=== PATIENT | male | born 1945 | race Caucasian/White ===

== ENCOUNTER 2016-08-14 09:53 | Outpatient (CLI) | payer MEDICARE, OTHER | END 2016-08-14 09:54 | disposition home or self-care (01) | DX: N40.1 Benign prostatic hyperplasia with lower urinary tract symptoms (principal); R39.15 Urgency of urination; N39.41 Urge incontinence ==

== ENCOUNTER 2016-10-23 10:57 | Day surgery (SDC) | payer MEDICARE, OTHER ==
[2016-10-23] MEDS ORDERED: LACTATED RINGERS 1,000 ML IV ONE (11:28)
[2016-10-23] MEDS ORDERED: fentaNYL 100 MCG/2 ML VIAL IVP ONE (13:29)
[2016-10-23] MEDS ORDERED: MIDAZOLAM 2 MG/2 ML VIAL IVP ONE (13:29)
== END 2016-10-23 10:58 | disposition home or self-care (01) ==
PROC: 0DBL8ZZ Excision of Transverse Colon, Via Natural or Artificial Opening Endoscopic (ICD-10-PCS; 2016-10-23)
PROC: 0DBN8ZZ Excision of Sigmoid Colon, Via Natural or Artificial Opening Endoscopic (ICD-10-PCS; 2016-10-23)
PROC: 0DBK8ZZ Excision of Ascending Colon, Via Natural or Artificial Opening Endoscopic (ICD-10-PCS; principal; 2016-10-23 12:15)
DX: Z12.11 Encounter for screening for malignant neoplasm of colon (principal); D12.3 Benign neoplasm of transverse colon; D12.2 Benign neoplasm of ascending colon; D12.5 Benign neoplasm of sigmoid colon; K64.8 Other hemorrhoids; K64.4 Residual hemorrhoidal skin tags; K57.30 Diverticulosis of large intestine without perforation or abscess without bleeding; E11.9 Type 2 diabetes mellitus without complications; K21.9 Gastro-esophageal reflux disease without esophagitis; I25.2 Old myocardial infarction; Z95.5 Presence of coronary angioplasty implant and graft
CPT/HCPCS: 45385; J7120

== ENCOUNTER 2016-10-31 12:35 | Inpatient (IN) | payer MEDICARE, OTHER ==
[2016-10-31] MEDS ORDERED: SODIUM CHLORIDE 0.9% 1,000 ML IV ONE (13:11)
[2016-10-31 13:26] LABS: BASOPHILS # (AUTO) 0.1 10^3/uL (0.0-0.1); BASOPHILS % (AUTO) 0.7 %; EOSINOPHILS # (AUTO) 0.1 10^3/uL (0.0-0.7); HCT - HEMATOCRIT 36.4 % (42.0-52.0); HGB - HEMOGLOBIN 12.8 g/dL (14.0-18.0); LYMPHOCYTES # (AUTO) 1.8 10^3/uL (1.5-3.5); LYMPHOCYTES % (AUTO) 24.5 %; MEAN CORPUSCULAR HEMOGLOBIN 30.2 pg (27.0-31.0); MEAN CORPUSCULAR HGB CONC 35.2 g/dL (32.0-36.0); MEAN CORPUSCULAR VOLUME 85.7 fL (80.0-94.0); MEAN PLATELET VOLUME 8.6 fL (7.4-11.4); MONOCYTES # (AUTO) 0.6 10^3/uL (0.0-1.0); MONOCYTES % (AUTO) 7.5 %; NEUTROPHILS % (AUTO) 66.3 %; RED BLOOD COUNT 4.25 10^6/uL (4.70-6.10); RED CELL DISTRIBUTION WIDTH 12.9 % (12.0-15.0); UNCORRECTED WHITE BLOOD COUNT 7.5 x10^3/uL; WHITE BLOOD COUNT 7.5 x10^3/uL (4.8-10.8)
--- NOTE | 2016-10-31 13:28 | ED Physician Documentation ---
PD HPI ABD PAIN - Stated complaint Stated Complaint: BLOOD IN STOOL,NAUSEA - Chief complaint Chief Complaint: Abd Pain - History obtained from History obtained from: Patient, Family - History of Present Illness Timing - onset: Today (71-year-old gentleman with history of coronary disease status post remote bypass, he is 8 days status post colonoscopy with several polypectomies and findings of internal and external hemorrhoids. He was doing well up until today when he started to develop nausea and then felt impending diarrhea but it was actually dark red blood per rectum several episodes. In fact I see one in the toilet that he had here with about 300 mL's of mostly blood in the toilet. He feels a little dizzy and nauseous but denies abdominal pain.) Review of Systems Ten Systems: 10 systems reviewed and negative Constitutional: reports: Fatigue. denies: Fever, Chills GI: reports: Nausea. denies: Abdominal Pain, Vomiting, Constipation PD PAST MEDICAL HISTORY - Past Medical History Past Medical History: Yes Cardiovascular: Hypertension, High cholesterol, [place] Respiratory: None Neuro: Peripheral neuropathy Endocrine/Autoimmune: Type 2 diabetes GI: Diverticulitis : Benign prostate hypertrophy, Other HEENT: Chronic vision loss, Chronic hearing loss Psych: None Musculoskeletal: Osteoarthritis, Chronic back pain Derm: None - Past Surgical History General: Colonoscopy Ortho: Other Cardiovascular: CABG, Coronary stent HEENT: Cataracts - Present Medications Home Medications: Ambulatory Orders Medication Instructions Recorded Confirmed Aspirin Chewable [St Levi 81 mg PO DAILY 10/23/16 10/31/16 Aspirin] Atorvastatin [Lipitor] 20 mg PO DAILY 10/23/16 10/31/16 Gabapentin 300 mg PO DAILY 10/23/16 10/31/16 Lisinopril 20 mg PO DAILY 10/23/16 10/31/16 Niacin [Niacor] 500 mg PO BID 10/23/16 10/31/16 Omeprazole 20 mg PO DAILY 10/23/16 10/31/16 Tamsulosin [Flomax] 0.4 mg PO DAILY 10/23/16 10/31/16 Metformin HCl [Metformin HCl ER] 1,500 mg PO DAILY 10/31/16 10/31/16 - Allergies Allergies/Adverse Reactions: Allergies Allergy/AdvReac Type Severity Reaction Status Date / Time No Known Drug Allergies Allergy Verified 10/23/16 11:33 - Social History Does the pt smoke?: No Smoking Status: Never smoker Does the pt drink ETOH?: No Does the pt have substance abuse?: No - Family History Family history: reports: Non contributory - Immunizations Immunizations are current?: Yes PD ED PE NORMAL - Vitals Vital signs reviewed: Yes (slight tachycardia) - General General: Alert and oriented X 3, No acute distress - HEENT HEENT: PERRL, EOMI - Neck Neck: Supple, no meningeal sign, No bony TTP - Cardiac Cardiac: RRR, No murmur - Respiratory Respiratory: No respiratory distress, Clear bilaterally - Abdomen Abdomen: Soft, Non tender - Rectal Rectal: Deferred (deferred as I can see the blood in the toilet) - Back Back: No CVA TTP, No spinal TTP - Derm Derm: Normal color, Warm and dry - Extremities Extremities: No edema, No calf tenderness / cord - Neuro Neuro: Alert and oriented X 3, Normal speech - Psych Psych: Normal mood, Normal affect Results - Vitals Vitals: Vital Signs - 24 hr 10/31/16 10/31/16 10/31/16 12:43 13:31 13:45 Temperature 36.8 C Heart Rate 103 H 88 Heart Rate [ 102 H Sitting] Heart Rate [ 109 H Standing] Heart Rate [ 90 Supine] Respiratory 20 16 Rate Blood Pressure 152/82 H 103/66 Blood Pressure 117/74 [Sitting] Blood Pressure 106/67 [Standing] Blood Pressure 131/74 H [Supine] O2 Saturation 96 10/31/16 10/31/16 10/31/16 14:00 14:30 15:45 Temperature Heart Rate 88 78 78 Heart Rate [ Sitting] Heart Rate [ Standing] Heart Rate [ Supine] Respiratory 16 16 Rate Blood Pressure 112/64 122/68 105/51 L Blood Pressure [Sitting] Blood Pressure [Standing] Blood Pressure [Supine] O2 Saturation 10/31/16 10/31/16 16:31 17:30 Temperature Heart Rate 70 88 Heart Rate [ Sitting] Heart Rate [ Standing] Heart Rate [ Supine] Respiratory 18 Rate Blood Pressure 111/64 116/61 Blood Pressure [Sitting] Blood Pressure [Standing] Blood Pressure [Supine] O2 Saturation Oxygen O2 Source Room air - Labs Labs: Laboratory Tests 10/31/16 10/31/16 10/31/16 13:10 13:10 13:10 WBC 7.5 RBC 4.25 L Hgb 12.8 L Hct 36.4 L MCV 85.7 MCH 30.2 MCHC 35.2 RDW 12.9 Plt Count 203 MPV 8.6 Neut # 5.0 Lymph # 1.8 Long # 0.6 Eos # 0.1 Baso # 0.1 Absolute Nucleated RBC 0.00 Nucleated RBCs 0.0 PT 11.6 INR 1.0 Sodium 136 Potassium 3.9 Chloride 102 Carbon Dioxide 25 Anion Gap 9.0 BUN 22 H Creatinine 0.9 Estimated GFR (MDRD) 83 L Glucose 172 H Calcium 9.2 Blood Type Antibody Screen 10/31/16 13:10 WBC RBC Hgb Hct MCV MCH MCHC RDW Plt Count MPV Neut # Lymph # Long # Eos # Baso # Absolute Nucleated RBC Nucleated RBCs PT INR Sodium Potassium Chloride Carbon Dioxide Anion Gap BUN Creatinine Estimated GFR (MDRD) Glucose Calcium Blood Type O POSITIVE Antibody Screen NEGATIVE PD MEDICAL DECISION MAKING - ED course ED course: 71-year-old gentleman with dark red blood per rectum, a significant amount here in the emergency Department associated with orthostasis, 8 days after colonoscopy with polypectomy. Given the large amount of blood and orthostasis I think he should be observed for serial H&H's and I spoke with Dr. Christy for this after he got out of the operating room at approximately 430 p.m. Departure - Departure Disposition: ED Place in Observation Clinical Impression: Lower GI hemorrhage Condition: Stable Discharge Date/Time: 10/31/16 18:20
[2016-10-31 13:32] LABS: PT - PROTHROMBIN TIME 11.6 secs (9.9-12.6)
[2016-10-31 13:35] LABS: CALCIUM 9.2 mg/dL (8.5-10.3); CREATININE 0.9 mg/dL (0.6-1.2); POTASSIUM 3.9 mmol/L (3.5-5.0)
--- NOTE | 2016-10-31 17:37 | HISTORY & PHYSICAL EXAMINATION ---
Chief Complaint - Chief Complaint Chief Complaint: Bleeding per rectum GI Bleed Admit Template - Instructions Dutton/Slash: -Left hand click circles element as positive or present. -Right hand click slashes element as negative or not present. - Admitted From Admitted from: OB - History Obtained From Records Reviewed: RN notes reviewed, Old records reviewed History obtained from: Patient Exam limitations: No limitations - History of Present Illness Severity at the worst: reports: Moderate Bleeding quality: reports: Tommy blood stool Context-bleeding started w/: reports: Bowel movement Timing: reports: Abrupt onset Duration: reports: Days: (1) Improved with: reports: Nothing Worsened by: reports: Nothing Associated symptoms: reports: Feeling faint / dizzy HPI Comment/Other: 71 yo male with recent hx of colonoscopy 10/23/16 with polyp biopsies,and note to have internal hemorrhoids, and diverticulosis presents to ED with 1 day HX of Bright red blood per rectum multiple episodes today. As per the ED attending patient had orthostatic hypotension when examined. Patient denies any SOB, no noausea, vomiting, no dizziness, or light headedness currently PMH/PSH - Past Medical History Cardiovascular: positive: Hypertension, High cholesterol, [place] Respiratory: positive: None Neuro: positive: Peripheral neuropathy Endocrine/Autoimmune: positive: Type 2 diabetes GI: positive: Diverticulitis : positive: Benign prostate hypertrophy, Other HEENT: positive: Chronic vision loss, Chronic hearing loss Psych: positive: None Musculoskeletal: positive: Osteoarthritis, Chronic back pain Derm: positive: None MRSA Hx?: No - Past Surgical History General: positive: Colonoscopy Ortho: positive: Other Cardiovascular: positive: CABG, Coronary stent HEENT: positive: Cataracts Social & Family Hx - Social History Does the pt smoke?: No Smoking Status: Never smoker Does the pt drink ETOH?: No Does the pt have substance abuse?: No Meds/Allgy - Home Medications Home Medications: Ambulatory Orders Medication Instructions Recorded Confirmed Aspirin Chewable [St Levi 81 mg PO DAILY 10/23/16 10/23/16 Aspirin] Atorvastatin [Lipitor] 20 mg PO DAILY 10/23/16 10/23/16 Gabapentin 300 mg PO DAILY 10/23/16 10/23/16 Lisinopril 20 mg PO DAILY 10/23/16 10/23/16 Niacin [Niacor] 500 mg PO BID 10/23/16 10/23/16 Omeprazole 20 mg PO DAILY 10/23/16 10/23/16 Tamsulosin [Flomax] 0.4 mg PO DAILY 10/23/16 10/23/16 - Allergies Allergies/Adverse Reactions: Allergies Allergy/AdvReac Type Severity Reaction Status Date / Time No Known Drug Allergies Allergy Verified 10/23/16 11:33 Review of Systems - Eyes Eyes: denies: Pain, Irritation - Ears, Nose & Throat Ears, Nose & Throat: denies: Ear pain, Hearing loss - Cardiovascular Cariovascular: denies: Palpitations, Chest pain - Respiratory Respiratory: denies: Wheezing, Hemoptysis, SOB at rest, SOB with exertion - Gastrointestinal Gastrointestinal: reports: Rectal bleeding, Bloody stools. denies: Abdominal pain, Constipation, Diarrhea, Tommy blood emesis - Genitourinary Genitourinary: denies: Dysuria, Urgency - Musculoskeletal Musculoskeletal: denies: Muscle pain, Back pain - Integumentary Integumentary: denies: Rash - Neurological Neurological: denies: General weakness, Headache, Dizziness - Psychiatric Psychiatric: denies: Depression, Anxiety - Endocrine Endocrine: denies: Polyuria, Polydypsia - Hematologic/Lymphatic Hematologic/Lymphatic: denies: Anemia - All Other Systems All Other Systems: reports: Reviewed and negative Exam - Vital Signs Vital Signs: Vital Signs x48h Temp Pulse Pulse Pulse Pulse Resp BP 10/31/16 16:31 70 111/64 10/31/16 15:45 78 16 105/51 L 10/31/16 14:30 78 16 122/68 10/31/16 14:00 88 112/64 10/31/16 13:45 88 16 103/66 10/31/16 13:31 102 H 109 H 90 10/31/16 12:43 36.8 C 103 H 20 152/82 H BP BP BP Pulse Ox 10/31/16 16:31 10/31/16 15:45 10/31/16 14:30 10/31/16 14:00 10/31/16 13:45 10/31/16 13:31 117/74 106/67 131/74 H 10/31/16 12:43 96 - Physical Exam General Appearance: positive: No acute distress Eyes Bilateral: positive: Normal inspection ENT: positive: No signs of dehydration Neck: positive: Nml inspection Respiratory: positive: Chest non-tender, Breath sounds nml Cardiovascular: positive: Regular rate & rhythm Peripheral Pulses: positive: 2+ Abdomen: positive: Non-tender, Nml bowel sounds, No distention Rectal: positive: Non-tender, Stool - heme NEG, Black stool Back: positive: Nml inspection Skin: positive: No rash, Dry Extremities: positive: Full ROM Results - Lab Results Fish Bones: 10/31/16 13:10 10/31/16 13:10 Other Lab Results: Lab Results x24hrs 10/31/16 10/31/16 10/31/16 Range/Units 13:10 13:10 13:10 WBC (4.8-10.8) x10^3/uL RBC (4.70-6.10) 10^6/uL Hgb (14.0-18.0) g/dL Hct (42.0-52.0) % MCV (80.0-94.0) fL MCH (27.0-31.0) pg MCHC (32.0-36.0) g/dL RDW (12.0-15.0) % Plt Count (130-450) 10^3/uL MPV (7.4-11.4) fL Neut # (1.5-6.6) 10^3/uL Lymph # (1.5-3.5) 10^3/uL Geary # (0.0-1.0) 10^3/uL Eos # (0.0-0.7) 10^3/uL Baso # (0.0-0.1) 10^3/uL Absolute Nucleated RBC x10^3/uL Nucleated RBCs /100WBC PT 11.6 (9.9-12.6) secs INR 1.0 (0.8-1.2) Sodium 136 (135-145) mmol/L Potassium 3.9 (3.5-5.0) mmol/L Chloride 102 (101-111) mmol/L Carbon Dioxide 25 (21-32) mmol/L Anion Gap 9.0 (6-13) BUN 22 H (6-20) mg/dL Creatinine 0.9 (0.6-1.2) mg/dL Estimated GFR (MDRD) 83 L (>89) Glucose 172 H (70-100) mg/dL Calcium 9.2 (8.5-10.3) mg/dL Blood Type O POSITIVE Antibody Screen NEGATIVE 10/31/16 Range/Units 13:10 WBC 7.5 (4.8-10.8) x10^3/uL RBC 4.25 L (4.70-6.10) 10^6/uL Hgb 12.8 L (14.0-18.0) g/dL Hct 36.4 L (42.0-52.0) % MCV 85.7 (80.0-94.0) fL MCH 30.2 (27.0-31.0) pg MCHC 35.2 (32.0-36.0) g/dL RDW 12.9 (12.0-15.0) % Plt Count 203 (130-450) 10^3/uL MPV 8.6 (7.4-11.4) fL Neut # 5.0 (1.5-6.6) 10^3/uL Lymph # 1.8 (1.5-3.5) 10^3/uL Geary # 0.6 (0.0-1.0) 10^3/uL Eos # 0.1 (0.0-0.7) 10^3/uL Baso # 0.1 (0.0-0.1) 10^3/uL Absolute Nucleated RBC 0.00 x10^3/uL Nucleated RBCs 0.0 /100WBC PT (9.9-12.6) secs INR (0.8-1.2) Sodium (135-145) mmol/L Potassium (3.5-5.0) mmol/L Chloride (101-111) mmol/L Carbon Dioxide (21-32) mmol/L Anion Gap (6-13) BUN (6-20) mg/dL Creatinine (0.6-1.2) mg/dL Estimated GFR (MDRD) (>89) Glucose (70-100) mg/dL Calcium (8.5-10.3) mg/dL Blood Type Antibody Screen ARRA - Anticipated LOS Anticipated Stay Length: Less than 2 midnights - DVT/VTE - Prophylaxis VTE/DVT Device ordered at admit?: Yes VTE/DVT Prophylaxis med ordered at admit?: No Not Ordered - Medical Reason: Contraindicated (GI bleed) Impression/Plan - Problem List Problem List: 71 yo male with hx of HTN, [place] with stents DM II BPH, lower GI bleed resolved Admit to surgery for observation NPO except home meds except ASA serial CBC's
[2016-10-31] MEDS ORDERED: SODIUM CHLORIDE FLUSH 0.9% 10 ML SYRINGE IVP PRN (17:44)
[2016-10-31] MEDS ORDERED: ONDANSETRON ODT 4 MG TABLET TL PRN (17:44)
[2016-10-31] MEDS ORDERED: PANTOPRAZOLE 40 MG TABLET PO STA (17:50)
[2016-10-31 18:14] LABS: BASOPHILS % (AUTO) 0.3 %; EOSINOPHILS # (AUTO) 0.1 10^3/uL (0.0-0.7); EOSINOPHILS % (AUTO) 1.1 %; HGB - HEMOGLOBIN 11.7 g/dL (14.0-18.0); LYMPHOCYTES # (AUTO) 1.9 10^3/uL (1.5-3.5); LYMPHOCYTES % (AUTO) 27.5 %; MEAN CORPUSCULAR HEMOGLOBIN 29.1 pg (27.0-31.0); MEAN CORPUSCULAR HGB CONC 33.4 g/dL (32.0-36.0); MEAN CORPUSCULAR VOLUME 87.2 fL (80.0-94.0); MEAN PLATELET VOLUME 8.3 fL (7.4-11.4); MONOCYTES # (AUTO) 0.5 10^3/uL (0.0-1.0); MONOCYTES % (AUTO) 7.4 %; NEUTROPHILS # (AUTO) 4.5 10^3/uL (1.5-6.6); NEUTROPHILS % (AUTO) 63.7 %; RED BLOOD COUNT 4.02 10^6/uL (4.70-6.10); RED CELL DISTRIBUTION WIDTH 12.9 % (12.0-15.0)
[2016-10-31] MEDS ORDERED: PANTOPRAZOLE 40 MG TABLET PO SCH (21:15)
[2016-10-31] MEDS: SODIUM CHLORIDE FLUSH 0.9% 10 ML SYRINGE IVP SCH (22:31)
[2016-10-31] MEDS: LACTATED RINGERS 1,000 ML IV SCH (22:31)
[2016-10-31] MEDS: ATORVASTATIN 10 MG TABLET PO SCH (22:32)
[2016-10-31] MEDS: GABAPENTIN 100 MG CAPSULE PO SCH (22:32)
--- NOTE | 2016-10-31 22:47 | PROVIDER PROGRESS NOTE ---
Subjective - Prog Note Date Prog Note Date: 10/31/16 Prog Note Time: 22:45 - Subjective Pt reports feeling: No change Subjective: Pt seen at bedside. RN reports that pt had bright red blood per rectum BM around 500 mL, and felt dizziy and stated he felt likehe was going to faint. Vitals measured 115/66, HR 75. Patient states otherwise he feels comfortable. He denies cp or SOB Current Medications - Current Medications Current Medications: Active Medications Generic Name Dose Route Start Last Admin Trade Name Freq PRN Reason Stop Dose Admin Atorvastatin Calcium 20 mg 10/31/16 21:00 10/31/16 22:32 Lipitor PO Not Given QPM SHY Gabapentin 100 mg 10/31/16 22:00 10/31/16 22:32 Neurontin PO Not Given TID SHY Lactated Ringer's 1,000 mls @ 125 mls/hr 10/31/16 21:00 10/31/16 22:31 Lr IV 11/02/16 20:59 125 mls/hr .Q8H SHY Administration Insulin Human Regular 1 - 5 unit 11/01/16 00:00 Novolin R SUBQ Q6HR SHY Protocol Ondansetron HCl 4 mg 10/31/16 17:44 Zofran Odt TL Q6HR PRN Nausea / Vomiting Pantoprazole Sodium 40 mg 10/31/16 21:15 10/31/16 22:31 Protonix PO 10/31/16 23:00 40 mg ONCE SHY Administration Sodium Chloride 10 ml 10/31/16 17:44 Normal Saline Flush 0.9% IVP PRN PRN NEEDED PER PROVIDER ORDERS Sodium Chloride 10 ml 10/31/16 22:00 10/31/16 22:31 Normal Saline Flush 0.9% IVP 10 ml Q8HR SHY Administration Tamsulosin HCl 0.4 mg 11/01/16 09:00 Flomax PO DAILY SHY Aspirin Chewable [St Levi Aspirin] 81 mg PO DAILY 10/23/16 Atorvastatin [Lipitor] 20 mg PO DAILY 10/23/16 Gabapentin 300 mg PO DAILY 10/23/16 Lisinopril 20 mg PO DAILY 10/23/16 Niacin [Niacor] 500 mg PO BID 10/23/16 Omeprazole 20 mg PO DAILY 10/23/16 Tamsulosin [Flomax] 0.4 mg PO DAILY 10/23/16 Metformin HCl [Metformin HCl ER] 1,500 mg PO DAILY 10/31/16 Objective - Vital Signs/Intake & Output Reviewed Vital Signs: Yes Vital Signs: Vital Signs x48h Temp Pulse Pulse Resp BP BP Pulse Ox 10/31/16 22:23 75 115/66 98 10/31/16 21:02 36.5 C 10/31/16 21:01 76 16 130/71 97 10/31/16 18:34 36.5 C 87 18 124/77 97 10/31/16 18:00 88 18 130/69 Intake & Output: Intake & Output 10/28/16 10/29/16 10/30/16 10/31/16 23:59 23:59 23:59 23:59 Output Total 450 Balance -450 - Objective General Appearance: positive: No acute distress Eyes Bilateral: positive: Normal inspection Respiratory: positive: Breath sounds nml. negative: Wheezes, Rales, Rhonchi Cardiovascular: positive: Regular rate & rhythm Peripheral Pulses: 2+ Radial (R), 2+ Radial (L) Abdomen: positive: Non-tender, No organomegaly, Nml bowel sounds Skin: positive: Warm, Dry Extremities: positive: Non-tender Neurologic/Psychiatric: positive: Oriented x3, CN's nml (2-12) - Lab Results Fish Bones: 10/31/16 18:08 10/31/16 13:10 Other Labs: Lab Results x24hrs 10/31/16 Range/Units 18:08 WBC 7.0 (4.8-10.8) x10^3/uL RBC 4.02 L (4.70-6.10) 10^6/uL Hgb 11.7 L (14.0-18.0) g/dL Hct 35.0 L (42.0-52.0) % MCV 87.2 (80.0-94.0) fL MCH 29.1 (27.0-31.0) pg MCHC 33.4 (32.0-36.0) g/dL RDW 12.9 (12.0-15.0) % Plt Count 200 (130-450) 10^3/uL MPV 8.3 (7.4-11.4) fL Neut # 4.5 (1.5-6.6) 10^3/uL Lymph # 1.9 (1.5-3.5) 10^3/uL Darke # 0.5 (0.0-1.0) 10^3/uL Eos # 0.1 (0.0-0.7) 10^3/uL Baso # 0.0 (0.0-0.1) 10^3/uL Absolute Nucleated RBC 0.00 x10^3/uL Nucleated RBCs 0.0 /100WBC Assessment/Plan - Problem List (1) Lower GI hemorrhage Impression: 71 yo male with hx of DM, [place] s/p CABG, HTN, diverticulosis, internal hemorrhoids , s/p colonoscopy 10/23/16 here with lower GI bleed NPO IVF Serial H&H Type and Cross 2 units PRBCS Medical team on case appreciated. RISS, SCD's will transfuse and place in ICU if continues to have lower GI bleed May need therapeutic colonoscopy
[2016-10-31] MEDS: INSULIN REGULAR HUMAN 100 UNIT/1 ML 10 ML MDV SUBQ SCH (23:34)
[2016-11-01 00:56] LABS: BASOPHILS % (AUTO) 0.5 %; EOSINOPHILS % (AUTO) 0.3 %; HCT - HEMATOCRIT 31.1 % (42.0-52.0); HGB - HEMOGLOBIN 10.5 g/dL (14.0-18.0); LYMPHOCYTES # (AUTO) 1.4 10^3/uL (1.5-3.5); LYMPHOCYTES % (AUTO) 15.7 %; MEAN CORPUSCULAR HEMOGLOBIN 29.4 pg (27.0-31.0); MEAN CORPUSCULAR HGB CONC 33.6 g/dL (32.0-36.0); MEAN CORPUSCULAR VOLUME 87.4 fL (80.0-94.0); MEAN PLATELET VOLUME 9.2 fL (7.4-11.4); MONOCYTES # (AUTO) 0.4 10^3/uL (0.0-1.0); MONOCYTES % (AUTO) 4.5 %; RED BLOOD COUNT 3.56 10^6/uL (4.70-6.10); RED CELL DISTRIBUTION WIDTH 12.8 % (12.0-15.0); UNCORRECTED WHITE BLOOD COUNT 8.8 x10^3/uL; WHITE BLOOD COUNT 8.8 x10^3/uL (4.8-10.8)
--- NOTE | 2016-11-01 03:03 | CONSULTATION NOTE ---
DATE OF CONSULTATION: 10/31/2016 00:00:00 REQUESTING PHYSICIAN: Dr. Fuad Christy. REASON FOR CONSULTATION: Management of medical issues, which include history of coronary artery disea se, hyperlipidemia, type 2 diabetes. PRIMARY CARE PROVIDER: Dr. Soheila Talbert. HISTORY OF PRESENT ILLNESS: This is a 71-year-old male who had a colonoscopy done about a week ago an d had some polyp biopsies. Was noted to have internal hemorrhoids and diverticulosis. He was in his [facility] until this morning and developed some bright red blood per rectum, had multiple episodes, felt slightly lightheaded with this and presented to the emergency room. He denied any shor tness of breath, chest pain, nausea or vomiting, but did have a little bit of lightheadedness with st anding. His initial hemoglobin was 12.8 with hematocrit of 36.4. This was obtained at 1:10 p.m. His r epeat lab at 6:08 p.m. was 11.7 and 35.0. Just prior to my consultation, he did have maroon-colored s tool and he felt a little bit lightheaded while sitting on the toilet and had a little bit of nausea with this. Prior to this, he has had no heart symptoms such as chest pain, shortness of breath, has n o history of cerebrovascular disease. He does take aspirin 1 tab daily 81 mg. He is on Lipitor 20 mg daily and lisinopril 20 mg daily. PAST MEDICAL HISTORY 1. Hyperlipidemia. 2. History of [place] with initially stent placed. The patient had recurrent symptoms soon after that and had a CABG x3 in 2001. This was done in [facility]. 3. Type 2 diabetes with peripheral neuropathy. 4. History of BPH. 5. History of diverticulitis. 6. Hypertension. MEDICATIONS UPON ADMISSION 1. ASA 81 mg p.o. daily. 2. Lipitor 20 mg p.o. daily. 3. Gabapentin 300 mg p.o. daily. 4. Lisinopril 20 mg p.o. daily. 5. Niacin 500 mg p.o. b.i.d. 6. Omeprazole 20 mg p.o. daily. 7. Flomax 0.4 mg p.o. daily. ALLERGIES: NO KNOWN DRUG ALLERGIES. SOCIAL HISTORY: Smoking and alcohol none. FAMILY MEDICAL HISTORY: Asked and noncontributory. REVIEW OF SYSTEMS: Denies fevers, chills. Denies cough. All other review of systems are reviewed and are negative except for as in HPI. Of note, the patient denies any abdominal pain currently. PHYSICAL EXAMINATION VITAL SIGNS: Reveals temperature is afebrile, heart rate is 75, blood pressure 115/66, room air satur ation 98%. CONSTITUTIONAL: Elderly male in no acute distress. HEAD: Normocephalic, atraumatic. EYES: PERRLA-DC, EOMI. MOUTH: No lesions. NECK: No adenopathy. CHEST: Clear to auscultation. COR: Regular rate and rhythm, S1, S2 without murmur. ABDOMEN: Soft, nontender. Bowel sounds present. EXTREMITIES: No pedal edema. SKIN: No rashes. PSYCHIATRIC: Mood and affect are appropriate. NEUROLOGIC: Alert and oriented x3. Motor strength is intact bilaterally. LABORATORY DATA: As above. Also to include white count of 7.5, MCV 85.7, platelets 203, 5.9 polys. IN R is 1.0. Sodium 136, potassium 3.9, chloride 102, bicarbonate 25, BUN 22, creatinine 0.9, calculated GFR 83, glucose 172, calcium 9.2. I did order a troponin q.6h. x3, which is pending. Ordered a stat repeat hematocrit at this time, which is pending and EKG is pending. The patient was also placed on t elemetry. ASSESSMENT AND PLAN 1. Lower gastrointestinal bleed, acute, present on admission. Serial hematocrits per General Surgery. I did order a stat hematocrit now given that the patient just recently had a maroon stool, appeared to be a significant amount, was slightly lightheaded with it. The patient is n.p.o. except medication s per General Surgery. 2. History of coronary artery disease. We will check serial cardiac troponins to make sure anemia is not causing any issues at this point. Check EKG, place on telemetry. 3. Type 2 diabetes, chronic, present on admission. Is on subcutaneous insulin protocol. Only uses met formin at home, which we will go ahead and hold during this hospital admission. 4. Hypertension, chronic, present on admission. We will go ahead and hold his lisinopril given his cu rrent GI bleeding. TIME SPENT: 60 minutes. JOB #: [id number] EXT JOB #:[id number]
[2016-11-01 04:51] LABS: BASOPHILS % (AUTO) 0.5 %; EOSINOPHILS % (AUTO) 0.6 %; HCT - HEMATOCRIT 30.4 % (42.0-52.0); HGB - HEMOGLOBIN 10.1 g/dL (14.0-18.0); LYMPHOCYTES # (AUTO) 1.7 10^3/uL (1.5-3.5); LYMPHOCYTES % (AUTO) 28.8 %; MEAN CORPUSCULAR HGB CONC 33.2 g/dL (32.0-36.0); MEAN CORPUSCULAR VOLUME 87.4 fL (80.0-94.0); MEAN PLATELET VOLUME 8.5 fL (7.4-11.4); MONOCYTES # (AUTO) 0.4 10^3/uL (0.0-1.0); MONOCYTES % (AUTO) 6.8 %; NEUTROPHILS # (AUTO) 3.8 10^3/uL (1.5-6.6); NEUTROPHILS % (AUTO) 63.3 %; RED BLOOD COUNT 3.48 10^6/uL (4.70-6.10); RED CELL DISTRIBUTION WIDTH 12.9 % (12.0-15.0); UNCORRECTED WHITE BLOOD COUNT 6.1 x10^3/uL; WHITE BLOOD COUNT 6.1 x10^3/uL (4.8-10.8)
[2016-11-01 05:03] LABS: ALBUMIN/GLOBULIN RATIO 1.3 (1.0-2.2); BILIRUBIN,TOTAL 0.9 mg/dL (0.2-1.0); CALCIUM 8.7 mg/dL (8.5-10.3); CREATININE 0.9 mg/dL (0.6-1.2); POTASSIUM 3.8 mmol/L (3.5-5.0); TOTAL PROTEIN 5.7 g/dL (6.7-8.2)
[2016-11-01] MEDS: GABAPENTIN 100 MG CAPSULE PO SCH ×3 (06:35→20:56)
[2016-11-01] MEDS: SODIUM CHLORIDE FLUSH 0.9% 10 ML SYRINGE IVP SCH ×3 (06:36→20:56)
[2016-11-01] MEDS: INSULIN REGULAR HUMAN 100 UNIT/1 ML 10 ML MDV SUBQ SCH (06:47)
--- NOTE | 2016-11-01 08:03 | PROVIDER PROGRESS NOTE ---
Subjective - Prog Note Date Prog Note Date: 11/01/16 Prog Note Time: 08:01 - Subjective Pt reports feeling: Improved (Patient seen at bedside. He denies having a Bm since his last episode yesterday night. He states he feels ok and is hungry. Denies, SOB, CP, dizziness, or abdominal pain) Current Medications - Current Medications Current Medications: Active Medications Generic Name Dose Route Start Last Admin Trade Name Freq PRN Reason Stop Dose Admin Atorvastatin Calcium 20 mg 10/31/16 21:00 10/31/16 22:32 Lipitor PO Not Given QPM SHY Gabapentin 100 mg 10/31/16 22:00 11/01/16 06:35 Neurontin PO 100 mg TID SHY Administration Lactated Ringer's 1,000 mls @ 125 mls/hr 10/31/16 21:00 10/31/16 22:31 Lr IV 11/02/16 20:59 125 mls/hr .Q8H SHY Administration Insulin Human Regular 1 - 5 unit 11/01/16 00:00 11/01/16 06:47 Novolin R SUBQ 1 unit Q6HR SHY Administration Protocol Ondansetron HCl 4 mg 10/31/16 17:44 Zofran Odt TL Q6HR PRN Nausea / Vomiting Sodium Chloride 10 ml 10/31/16 17:44 Normal Saline Flush 0.9% IVP PRN PRN NEEDED PER PROVIDER ORDERS Sodium Chloride 10 ml 10/31/16 22:00 11/01/16 06:36 Normal Saline Flush 0.9% IVP 10 ml Q8HR SHY Administration Tamsulosin HCl 0.4 mg 11/01/16 09:00 Flomax PO DAILY SHY Aspirin Chewable [St Levi Aspirin] 81 mg PO DAILY 10/23/16 Atorvastatin [Lipitor] 20 mg PO DAILY 10/23/16 Gabapentin 300 mg PO DAILY 10/23/16 Lisinopril 20 mg PO DAILY 10/23/16 Niacin [Niacor] 500 mg PO BID 10/23/16 Omeprazole 20 mg PO DAILY 10/23/16 Tamsulosin [Flomax] 0.4 mg PO DAILY 10/23/16 Metformin HCl [Metformin HCl ER] 1,500 mg PO DAILY 10/31/16 Objective - Vital Signs/Intake & Output Vital Signs: Vital Signs x48h Temp Pulse Resp BP Pulse Ox 11/01/16 07:52 36.6 C 84 18 99/52 L 97 11/01/16 04:19 36.8 C 76 16 103/66 98 11/01/16 00:54 36.6 C 81 18 103/64 97 Intake & Output: Intake & Output 10/29/16 10/30/16 10/31/16 11/01/16 23:59 23:59 23:59 23:59 Intake Total 175 Output Total 450 400 Balance -450 -225 - Objective General Appearance: positive: No acute distress Eyes Bilateral: positive: Normal inspection ENT: positive: No signs of dehydration Neck: positive: Nml inspection Respiratory: positive: Breath sounds nml. negative: Wheezes, Rales, Rhonchi Cardiovascular: positive: Regular rate & rhythm Abdomen: positive: Non-tender, Nml bowel sounds Back: positive: Nml inspection Skin: positive: Warm, Dry Extremities: positive: Non-tender, Full ROM Neurologic/Psychiatric: positive: Oriented x3, CN's nml (2-12) - Lab Results Fish Bones: 11/01/16 04:35 11/01/16 04:35 Other Labs: Lab Results x24hrs 11/01/16 11/01/16 11/01/16 Range/Units 04:35 04:35 04:35 WBC 6.1 (4.8-10.8) x10^3/uL RBC 3.48 L (4.70-6.10) 10^6/uL Hgb 10.1 L (14.0-18.0) g/dL Hct 30.4 L (42.0-52.0) % MCV 87.4 (80.0-94.0) fL MCH 29.0 (27.0-31.0) pg MCHC 33.2 (32.0-36.0) g/dL RDW 12.9 (12.0-15.0) % Plt Count 197 (130-450) 10^3/uL MPV 8.5 (7.4-11.4) fL Neut # 3.8 (1.5-6.6) 10^3/uL Lymph # 1.7 (1.5-3.5) 10^3/uL [place] # 0.4 (0.0-1.0) 10^3/uL Eos # 0.0 (0.0-0.7) 10^3/uL Baso # 0.0 (0.0-0.1) 10^3/uL Absolute Nucleated RBC 0.00 x10^3/uL Nucleated RBCs 0.0 /100WBC Sodium 136 (135-145) mmol/L Potassium 3.8 (3.5-5.0) mmol/L Chloride 103 (101-111) mmol/L Carbon Dioxide 26 (21-32) mmol/L Anion Gap 7.0 (6-13) BUN 19 (6-20) mg/dL Creatinine 0.9 (0.6-1.2) mg/dL Estimated GFR (MDRD) 83 L (>89) Glucose 154 H (70-100) mg/dL Calcium 8.7 (8.5-10.3) mg/dL Total Bilirubin 0.9 (0.2-1.0) mg/dL AST 13 (10-42) IU/L ALT 18 (10-60) IU/L Alkaline Phosphatase 64 (42-121) IU/L Troponin I < 0.04 (<0.49) ng/mL Total Protein 5.7 L (6.7-8.2) g/dL Albumin 3.2 (3.2-5.5) g/dL Globulin 2.5 (2.1-4.2) g/dL Albumin/Globulin Ratio 1.3 (1.0-2.2) 10/31/16 10/31/16 10/31/16 Range/Units 23:57 22:49 22:49 WBC 8.8 (4.8-10.8) x10^3/uL RBC 3.56 L (4.70-6.10) 10^6/uL Hgb 10.5 L (14.0-18.0) g/dL Hct 31.1 L 30.3 L (42.0-52.0) % MCV 87.4 (80.0-94.0) fL MCH 29.4 (27.0-31.0) pg MCHC 33.6 (32.0-36.0) g/dL RDW 12.8 (12.0-15.0) % Plt Count 197 (130-450) 10^3/uL MPV 9.2 (7.4-11.4) fL Neut # 7.0 H (1.5-6.6) 10^3/uL Lymph # 1.4 L (1.5-3.5) 10^3/uL [place] # 0.4 (0.0-1.0) 10^3/uL Eos # 0.0 (0.0-0.7) 10^3/uL Baso # 0.0 (0.0-0.1) 10^3/uL Absolute Nucleated RBC 0.00 x10^3/uL Nucleated RBCs 0.0 /100WBC Sodium (135-145) mmol/L Potassium (3.5-5.0) mmol/L Chloride (101-111) mmol/L Carbon Dioxide (21-32) mmol/L Anion Gap (6-13) BUN (6-20) mg/dL Creatinine (0.6-1.2) mg/dL Estimated GFR (MDRD) (>89) Glucose (70-100) mg/dL Calcium (8.5-10.3) mg/dL Total Bilirubin (0.2-1.0) mg/dL AST (10-42) IU/L ALT (10-60) IU/L Alkaline Phosphatase (42-121) IU/L Troponin I < 0.04 (<0.49) ng/mL Total Protein (6.7-8.2) g/dL Albumin (3.2-5.5) g/dL Globulin (2.1-4.2) g/dL Albumin/Globulin Ratio (1.0-2.2) 10/31/16 Range/Units 18:08 WBC 7.0 (4.8-10.8) x10^3/uL RBC 4.02 L (4.70-6.10) 10^6/uL Hgb 11.7 L (14.0-18.0) g/dL Hct 35.0 L (42.0-52.0) % MCV 87.2 (80.0-94.0) fL MCH 29.1 (27.0-31.0) pg MCHC 33.4 (32.0-36.0) g/dL RDW 12.9 (12.0-15.0) % Plt Count 200 (130-450) 10^3/uL MPV 8.3 (7.4-11.4) fL Neut # 4.5 (1.5-6.6) 10^3/uL Lymph # 1.9 (1.5-3.5) 10^3/uL [place] # 0.5 (0.0-1.0) 10^3/uL Eos # 0.1 (0.0-0.7) 10^3/uL Baso # 0.0 (0.0-0.1) 10^3/uL Absolute Nucleated RBC 0.00 x10^3/uL Nucleated RBCs 0.0 /100WBC Sodium (135-145) mmol/L Potassium (3.5-5.0) mmol/L Chloride (101-111) mmol/L Carbon Dioxide (21-32) mmol/L Anion Gap (6-13) BUN (6-20) mg/dL Creatinine (0.6-1.2) mg/dL Estimated GFR (MDRD) (>89) Glucose (70-100) mg/dL Calcium (8.5-10.3) mg/dL Total Bilirubin (0.2-1.0) mg/dL AST (10-42) IU/L ALT (10-60) IU/L Alkaline Phosphatase (42-121) IU/L Troponin I (<0.49) ng/mL Total Protein (6.7-8.2) g/dL Albumin (3.2-5.5) g/dL Globulin (2.1-4.2) g/dL Albumin/Globulin Ratio (1.0-2.2) Assessment/Plan - Problem List (1) Lower GI hemorrhage Impression: 71 yo male with Lower GI Bleed resolving CBC's beginning to stabilize. Medical team on case appreciated Will continue serial CBC's May need transfusion if has recurrent episode. Will continue previous medications
[2016-11-01] MEDS ORDERED: LISINOPRIL 20 MG TABLET PO SCH (09:00)
[2016-11-01 09:05] LABS: MAGNESIUM 1.5 mg/dL (1.7-2.8); PHOSPHORUS 2.8 mg/dL (2.5-4.6)
[2016-11-01] MEDS: TAMSULOSIN 0.4 MG CAPSULE PO SCH (09:14)
[2016-11-01 09:20] LABS: HEMOGLOBIN A1C 0.51 g/dL
[2016-11-01 10:47] LABS: BASOPHILS % (AUTO) 0.5 %; EOSINOPHILS % (AUTO) 0.8 %; HCT - HEMATOCRIT 30.2 % (42.0-52.0); HGB - HEMOGLOBIN 10.5 g/dL (14.0-18.0); LYMPHOCYTES # (AUTO) 1.6 10^3/uL (1.5-3.5); LYMPHOCYTES % (AUTO) 29.4 %; MEAN CORPUSCULAR HEMOGLOBIN 29.9 pg (27.0-31.0); MEAN CORPUSCULAR HGB CONC 34.6 g/dL (32.0-36.0); MEAN CORPUSCULAR VOLUME 86.3 fL (80.0-94.0); MEAN PLATELET VOLUME 8.7 fL (7.4-11.4); MONOCYTES # (AUTO) 0.4 10^3/uL (0.0-1.0); NEUTROPHILS # (AUTO) 3.3 10^3/uL (1.5-6.6); NEUTROPHILS % (AUTO) 61.3 %; RED CELL DISTRIBUTION WIDTH 13.1 % (12.0-15.0); UNCORRECTED WHITE BLOOD COUNT 5.4 x10^3/uL; WHITE BLOOD COUNT 5.4 x10^3/uL (4.8-10.8)
[2016-11-01] MEDS: INSULIN ASPART 300 UNIT/3 ML PEN SUBQ SCH ×3 (11:51→20:56)
[2016-11-01] MEDS ORDERED: DEXTROSE GEL 37.5 GM TUBE PO PRN (12:59)
[2016-11-01] MEDS ORDERED: DEXTROSE 5% 1,000 ML IV PRN (12:59)
[2016-11-01] MEDS ORDERED: GLUCAGON 1 MG/ML VIAL SUBQ PRN (12:59)
[2016-11-01] MEDS ORDERED: DEXTROSE 50% ABBOJECT 25 GM/50 ML SYRINGE IVP PRN (12:59)
[2016-11-01] MEDS ORDERED: INSULIN REGULAR HUMAN 100 UNIT/1 ML 10 ML MDV SUBQ SCH (13:00)
--- NOTE | 2016-11-01 13:04 | PROVIDER PROGRESS NOTE ---
Subjective - Prog Note Date Prog Note Date: 11/01/16 (followup for GI bleed and diabetes management) Prog Note Time: 13:02 - Subjective Pt reports feeling: Improved Subjective: Patient seen at bedside and is on consult for surgery. His hemoglobin A1C was elevated at 6.5. sliding scale insulin for coverage. Patient states he is feeling better. He had a colonoscopy a couple days ago. They removed 5 polyps. He started to have bleeding last night and noticed neo red blood in the toilet. He does take aspirin. He has no abdominal pain, chest pain or shortness of breath. He denies nausea or diarrhea. No constipation or vomiting. was at bedside. He has been up and moving around the room. Surgery plan is to discharge in the morning. will continue to monitor his output tonight Current Medications - Current Medications Current Medications: Active Medications Generic Name Dose Route Start Last Admin Trade Name Freq PRN Reason Stop Dose Admin Atorvastatin Calcium 20 mg 10/31/16 21:00 10/31/16 22:32 Lipitor PO Not Given QPM SHY Dextrose 20 - 50 ml 11/01/16 12:59 Dextrose IVP 12/01/16 12:58 ONCE PRN BG Less than 70 Gabapentin 100 mg 10/31/16 22:00 11/01/16 06:35 Neurontin PO 100 mg TID SHY Administration Glucagon 1 mg 11/01/16 12:59 Glucagen SUBQ 12/01/16 12:58 ONCE PRN BG <70 and no PO or IV access Glucose 37.5 - 75 gm 11/01/16 12:59 Glutose PO 12/01/16 12:58 ONCE PRN BG Less than 70 Lactated Ringer's 1,000 mls @ 125 mls/hr 10/31/16 21:00 10/31/16 22:31 Lr IV 11/02/16 20:59 125 mls/hr .Q8H SHY Administration Magnesium Sulfate 50 mls @ 150 mls/hr 11/01/16 13:00 Magnesium Sulfate IV 11/01/16 13:39 Q20M SHY Dextrose 1,000 mls @ 100 mls/hr 11/01/16 12:59 D5w IV 12/01/16 12:58 .Q10H PRN BG 50 - 69 Insulin Aspart 1 - 5 unit 11/01/16 12:00 11/01/16 11:51 Novolog SUBQ 1 unit 0800,1200,1700,2100 [facility] Administration Protocol Insulin Human Regular 1 - 5 unit 11/01/16 13:00 Novolin R SUBQ Q6HR [facility] Protocol Ondansetron HCl 4 mg 10/31/16 17:44 Zofran Odt TL Q6HR PRN Nausea / Vomiting Sodium Chloride 10 ml 10/31/16 17:44 Normal Saline Flush 0.9% IVP PRN PRN NEEDED PER PROVIDER ORDERS Sodium Chloride 10 ml 10/31/16 22:00 11/01/16 06:36 Normal Saline Flush 0.9% IVP 10 ml Q8HR SHY Administration Tamsulosin HCl 0.4 mg 11/01/16 09:00 11/01/16 09:14 Flomax PO 0.4 mg DAILY SHY Administration Aspirin Chewable [St Levi Aspirin] 81 mg PO DAILY 10/23/16 Atorvastatin [Lipitor] 20 mg PO QPM 10/23/16 Gabapentin 300 mg PO QPM 10/23/16 Lisinopril 20 mg PO DAILY 10/23/16 Niacin [Niacor] 500 mg PO BID 10/23/16 Omeprazole 20 mg PO DAILY 10/23/16 Tamsulosin [Flomax] 0.4 mg PO DAILY 10/23/16 Metformin HCl [Metformin HCl ER] 500 mg PO TIDWM 10/31/16 Objective - Vital Signs/Intake & Output Vital Signs: Vital Signs x48h Temp Pulse Resp BP Pulse Ox 11/01/16 11:54 36.6 C 81 19 108/61 98 11/01/16 07:52 36.6 C 84 18 99/52 L 97 Intake & Output: Intake & Output 10/29/16 10/30/16 10/31/16 11/01/16 23:59 23:59 23:59 23:59 Intake Total 475 Output Total 450 400 Balance -450 75 - Objective General Appearance: positive: Alert Eyes Bilateral: positive: PERRL ENT: positive: Pharynx nml, No signs of dehydration Neck: positive: Nml inspection, No JVD, Trachea midline Respiratory: positive: No respiratory distress, Breath sounds nml Cardiovascular: positive: Regular rate & rhythm, No murmur, No gallop. negative : Tachycardia, JVD present Peripheral Pulses: 2+ Radial (R), 2+ Radial (L), 2+ Dorsalis pedis (R), 2+ Dorsalis pedis (L) Abdomen: positive: Non-tender, No organomegaly, Other (obese). negative: Guarding, Rebound, Splenomegaly Rectal: positive: Black stool, Bloody stool Back: positive: Nml inspection. negative: CVA tenderness (R), CVA tenderness (L ) Skin: positive: Color nml, No rash, Warm, Dry Extremities: positive: Full ROM, Nml appearance, No pedal edema Neurologic/Psychiatric: positive: Oriented x3, CN's nml (2-12), Motor nml, Sensation nml, Mood/affect nml - Lab Results Fish Bones: 11/01/16 10:36 11/01/16 04:35 Other Labs: Lab Results x24hrs 11/01/16 11/01/16 11/01/16 Range/Units 11:14 10:36 10:36 WBC 5.4 (4.8-10.8) x10^3/uL RBC 3.50 L (4.70-6.10) 10^6/uL Hgb 10.5 L (14.0-18.0) g/dL Hct 30.2 L (42.0-52.0) % MCV 86.3 (80.0-94.0) fL MCH 29.9 (27.0-31.0) pg MCHC 34.6 (32.0-36.0) g/dL RDW 13.1 (12.0-15.0) % Plt Count 190 (130-450) 10^3/uL MPV 8.7 (7.4-11.4) fL Neut # 3.3 (1.5-6.6) 10^3/uL Lymph # 1.6 (1.5-3.5) 10^3/uL [place] # 0.4 (0.0-1.0) 10^3/uL Eos # 0.0 (0.0-0.7) 10^3/uL Baso # 0.0 (0.0-0.1) 10^3/uL Absolute Nucleated RBC 0.00 x10^3/uL Nucleated RBCs 0.0 /100WBC ESR (0-20) mm/Hr Sodium (135-145) mmol/L Potassium (3.5-5.0) mmol/L Chloride (101-111) mmol/L Carbon Dioxide (21-32) mmol/L Anion Gap (6-13) BUN (6-20) mg/dL Creatinine (0.6-1.2) mg/dL Estimated GFR (MDRD) (>89) Glucose (70-100) mg/dL POC Whole Bld Glucose 141 H (70 - 100) mg/dL Glycated Hemoglobin (4.6-6.2) % Estim Average Glucose (70-100) Calcium (8.5-10.3) mg/dL Phosphorus (2.5-4.6) mg/dL Magnesium (1.7-2.8) mg/dL Total Bilirubin (0.2-1.0) mg/dL AST (10-42) IU/L ALT (10-60) IU/L Alkaline Phosphatase (42-121) IU/L Troponin I < 0.04 (<0.49) ng/mL C-Reactive Protein (0-1.0) mg/dL Total Protein (6.7-8.2) g/dL Albumin (3.2-5.5) g/dL Globulin (2.1-4.2) g/dL Albumin/Globulin Ratio (1.0-2.2) 11/01/16 11/01/16 11/01/16 Range/Units 08:20 08:20 08:20 WBC (4.8-10.8) x10^3/uL RBC (4.70-6.10) 10^6/uL Hgb (14.0-18.0) g/dL Hct (42.0-52.0) % MCV (80.0-94.0) fL MCH (27.0-31.0) pg MCHC (32.0-36.0) g/dL RDW (12.0-15.0) % Plt Count (130-450) 10^3/uL MPV (7.4-11.4) fL Neut # (1.5-6.6) 10^3/uL Lymph # (1.5-3.5) 10^3/uL [place] # (0.0-1.0) 10^3/uL Eos # (0.0-0.7) 10^3/uL Baso # (0.0-0.1) 10^3/uL Absolute Nucleated RBC x10^3/uL Nucleated RBCs /100WBC ESR 14 (0-20) mm/Hr Sodium (135-145) mmol/L Potassium (3.5-5.0) mmol/L Chloride (101-111) mmol/L Carbon Dioxide (21-32) mmol/L Anion Gap (6-13) BUN (6-20) mg/dL Creatinine (0.6-1.2) mg/dL Estimated GFR (MDRD) (>89) Glucose (70-100) mg/dL POC Whole Bld Glucose (70 - 100) mg/dL Glycated Hemoglobin 6.5 H (4.6-6.2) % Estim Average Glucose 140 H (70-100) Calcium (8.5-10.3) mg/dL Phosphorus 2.8 (2.5-4.6) mg/dL Magnesium 1.5 L (1.7-2.8) mg/dL Total Bilirubin (0.2-1.0) mg/dL AST (10-42) IU/L ALT (10-60) IU/L Alkaline Phosphatase (42-121) IU/L Troponin I (<0.49) ng/mL C-Reactive Protein < 1.0 (0-1.0) mg/dL Total Protein (6.7-8.2) g/dL Albumin (3.2-5.5) g/dL Globulin (2.1-4.2) g/dL Albumin/Globulin Ratio (1.0-2.2) 11/01/16 11/01/16 11/01/16 Range/Units 06:38 04:35 04:35 WBC (4.8-10.8) x10^3/uL RBC (4.70-6.10) 10^6/uL Hgb (14.0-18.0) g/dL Hct (42.0-52.0) % MCV (80.0-94.0) fL MCH (27.0-31.0) pg MCHC (32.0-36.0) g/dL RDW (12.0-15.0) % Plt Count (130-450) 10^3/uL MPV (7.4-11.4) fL Neut # (1.5-6.6) 10^3/uL Lymph # (1.5-3.5) 10^3/uL [place] # (0.0-1.0) 10^3/uL Eos # (0.0-0.7) 10^3/uL Baso # (0.0-0.1) 10^3/uL Absolute Nucleated RBC x10^3/uL Nucleated RBCs /100WBC ESR (0-20) mm/Hr Sodium 136 (135-145) mmol/L Potassium 3.8 (3.5-5.0) mmol/L Chloride 103 (101-111) mmol/L Carbon Dioxide 26 (21-32) mmol/L Anion Gap 7.0 (6-13) BUN 19 (6-20) mg/dL Creatinine 0.9 (0.6-1.2) mg/dL Estimated GFR (MDRD) 83 L (>89) Glucose 154 H (70-100) mg/dL POC Whole Bld Glucose 151 H (70 - 100) mg/dL Glycated Hemoglobin (4.6-6.2) % Estim Average Glucose (70-100) Calcium 8.7 (8.5-10.3) mg/dL Phosphorus (2.5-4.6) mg/dL Magnesium (1.7-2.8) mg/dL Total Bilirubin 0.9 (0.2-1.0) mg/dL AST 13 (10-42) IU/L ALT 18 (10-60) IU/L Alkaline Phosphatase 64 (42-121) IU/L Troponin I < 0.04 (<0.49) ng/mL C-Reactive Protein (0-1.0) mg/dL Total Protein 5.7 L (6.7-8.2) g/dL Albumin 3.2 (3.2-5.5) g/dL Globulin 2.5 (2.1-4.2) g/dL Albumin/Globulin Ratio 1.3 (1.0-2.2) 11/01/16 10/31/16 10/31/16 Range/Units 04:35 23:57 23:25 WBC 6.1 8.8 (4.8-10.8) x10^3/uL RBC 3.48 L 3.56 L (4.70-6.10) 10^6/uL Hgb 10.1 L 10.5 L (14.0-18.0) g/dL Hct 30.4 L 31.1 L (42.0-52.0) % MCV 87.4 87.4 (80.0-94.0) fL MCH 29.0 29.4 (27.0-31.0) pg MCHC 33.2 33.6 (32.0-36.0) g/dL RDW 12.9 12.8 (12.0-15.0) % Plt Count 197 197 (130-450) 10^3/uL MPV 8.5 9.2 (7.4-11.4) fL Neut # 3.8 7.0 H (1.5-6.6) 10^3/uL Lymph # 1.7 1.4 L (1.5-3.5) 10^3/uL [place] # 0.4 0.4 (0.0-1.0) 10^3/uL Eos # 0.0 0.0 (0.0-0.7) 10^3/uL Baso # 0.0 0.0 (0.0-0.1) 10^3/uL Absolute Nucleated RBC 0.00 0.00 x10^3/uL Nucleated RBCs 0.0 0.0 /100WBC ESR (0-20) mm/Hr Sodium (135-145) mmol/L Potassium (3.5-5.0) mmol/L Chloride (101-111) mmol/L Carbon Dioxide (21-32) mmol/L Anion Gap (6-13) BUN (6-20) mg/dL Creatinine (0.6-1.2) mg/dL Estimated GFR (MDRD) (>89) Glucose (70-100) mg/dL POC Whole Bld Glucose 184 H (70 - 100) mg/dL Glycated Hemoglobin (4.6-6.2) % Estim Average Glucose (70-100) Calcium (8.5-10.3) mg/dL Phosphorus (2.5-4.6) mg/dL Magnesium (1.7-2.8) mg/dL Total Bilirubin (0.2-1.0) mg/dL AST (10-42) IU/L ALT (10-60) IU/L Alkaline Phosphatase (42-121) IU/L Troponin I (<0.49) ng/mL C-Reactive Protein (0-1.0) mg/dL Total Protein (6.7-8.2) g/dL Albumin (3.2-5.5) g/dL Globulin (2.1-4.2) g/dL Albumin/Globulin Ratio (1.0-2.2) 10/31/16 10/31/16 10/31/16 Range/Units 22:49 22:49 20:42 WBC (4.8-10.8) x10^3/uL RBC (4.70-6.10) 10^6/uL Hgb (14.0-18.0) g/dL Hct 30.3 L (42.0-52.0) % MCV (80.0-94.0) fL MCH (27.0-31.0) pg MCHC (32.0-36.0) g/dL RDW (12.0-15.0) % Plt Count (130-450) 10^3/uL MPV (7.4-11.4) fL Neut # (1.5-6.6) 10^3/uL Lymph # (1.5-3.5) 10^3/uL [place] # (0.0-1.0) 10^3/uL Eos # (0.0-0.7) 10^3/uL Baso # (0.0-0.1) 10^3/uL Absolute Nucleated RBC x10^3/uL Nucleated RBCs /100WBC ESR (0-20) mm/Hr Sodium (135-145) mmol/L Potassium (3.5-5.0) mmol/L Chloride (101-111) mmol/L Carbon Dioxide (21-32) mmol/L Anion Gap (6-13) BUN (6-20) mg/dL Creatinine (0.6-1.2) mg/dL Estimated GFR (MDRD) (>89) Glucose (70-100) mg/dL POC Whole Bld Glucose 182 H (70 - 100) mg/dL Glycated Hemoglobin (4.6-6.2) % Estim Average Glucose (70-100) Calcium (8.5-10.3) mg/dL Phosphorus (2.5-4.6) mg/dL Magnesium (1.7-2.8) mg/dL Total Bilirubin (0.2-1.0) mg/dL AST (10-42) IU/L ALT (10-60) IU/L Alkaline Phosphatase (42-121) IU/L Troponin I < 0.04 (<0.49) ng/mL C-Reactive Protein (0-1.0) mg/dL Total Protein (6.7-8.2) g/dL Albumin (3.2-5.5) g/dL Globulin (2.1-4.2) g/dL Albumin/Globulin Ratio (1.0-2.2) 10/31/16 10/31/16 Range/Units 20:14 18:08 WBC 7.0 (4.8-10.8) x10^3/uL RBC 4.02 L (4.70-6.10) 10^6/uL Hgb 11.7 L (14.0-18.0) g/dL Hct 35.0 L (42.0-52.0) % MCV 87.2 (80.0-94.0) fL MCH 29.1 (27.0-31.0) pg MCHC 33.4 (32.0-36.0) g/dL RDW 12.9 (12.0-15.0) % Plt Count 200 (130-450) 10^3/uL MPV 8.3 (7.4-11.4) fL Neut # 4.5 (1.5-6.6) 10^3/uL Lymph # 1.9 (1.5-3.5) 10^3/uL [place] # 0.5 (0.0-1.0) 10^3/uL Eos # 0.1 (0.0-0.7) 10^3/uL Baso # 0.0 (0.0-0.1) 10^3/uL Absolute Nucleated RBC 0.00 x10^3/uL Nucleated RBCs 0.0 /100WBC ESR (0-20) mm/Hr Sodium (135-145) mmol/L Potassium (3.5-5.0) mmol/L Chloride (101-111) mmol/L Carbon Dioxide (21-32) mmol/L Anion Gap (6-13) BUN (6-20) mg/dL Creatinine (0.6-1.2) mg/dL Estimated GFR (MDRD) (>89) Glucose (70-100) mg/dL POC Whole Bld Glucose 142 H (70 - 100) mg/dL Glycated Hemoglobin (4.6-6.2) % Estim Average Glucose (70-100) Calcium (8.5-10.3) mg/dL Phosphorus (2.5-4.6) mg/dL Magnesium (1.7-2.8) mg/dL Total Bilirubin (0.2-1.0) mg/dL AST (10-42) IU/L ALT (10-60) IU/L Alkaline Phosphatase (42-121) IU/L Troponin I (<0.49) ng/mL C-Reactive Protein (0-1.0) mg/dL Total Protein (6.7-8.2) g/dL Albumin (3.2-5.5) g/dL Globulin (2.1-4.2) g/dL Albumin/Globulin Ratio (1.0-2.2) - Diagnostic Imaging Diagnostic Imaging Results: positive: See rad report - Other Results/Comments Other Results/Comments: Patient had low magnesium. Gave 4gm IV magnesium sulfate and will repeat level in the morning. Assessment/Plan - Problem List (1) Lower GI hemorrhage Impression: improving. surgery managing. no bleeding at this time (2) Hypomagnesemia Impression: ongoing. gave magnesium sulfate IV 4gm and recheck magnesium level in morning (3) Diabetes mellitus due to underlying condition with diabetic polyneuropathy Impression: ongong. counseling for diabetic management compliance with diet and exercise. sliding scale insulin for coverage. diabetic diet when tolerating. nutrition consult recommended Qualifiers: Diabetes mellitus buttermaker insulin use: without buttermaker use Qualified Code(s): E08.42 - Diabetes mellitus due to underlying condition with diabetic polyneuropathy (4) Obesity due to excess calories with serious comorbidity Impression: ongoing. continue to encourage lifestyle modification. This was discussed at bedside with family. He has lost 20 pounds by cutting out white product of food. cardiac low fat diet recommended (5) Arteriosclerosis of arterial coronary artery bypass graft Impression: stable. continue on blood pressure medications from home with parameters. (6) BPH (benign prostatic hypertrophy) Impression: stable. continue on flomax as prescribed Thank you for the referral. We will follow with you as needed. Time spent with patient was 45 minutes for planning and assessment Patient will need another 24 hours for evaluation Qualifiers: Prostatic enlargement morphology: unspecified morphology Lower urinary tract symptom presence: presence of symptoms unspecified Qualified Code(s): N40.0 - Benign prostatic hyperplasia without lower urinary tract symptoms
[2016-11-01] MEDS: MAGNESIUM SULFATE 2 GRAM 50 ML IV SCH ×2 (13:33→14:49)
[2016-11-01 16:59] LABS: HCT - HEMATOCRIT 29.7 % (42.0-52.0)
[2016-11-01] MEDS: LACTATED RINGERS 1,000 ML IV SCH ×2 (17:01→20:49)
[2016-11-01] MEDS: PANTOPRAZOLE 40 MG TABLET PO SCH (17:23)
[2016-11-01] MEDS: ATORVASTATIN 10 MG TABLET PO SCH (20:56)
[2016-11-01] MEDS ORDERED: ATORVASTATIN 10 MG TABLET PO SCH (21:00)
[2016-11-01] MEDS ORDERED: GABAPENTIN 300 MG CAPSULE PO SCH (21:00)
[2016-11-02] MEDS: SODIUM CHLORIDE FLUSH 0.9% 10 ML SYRINGE IVP SCH (06:31)
[2016-11-02] MEDS: PANTOPRAZOLE 40 MG TABLET PO SCH (06:32)
[2016-11-02] MEDS: GABAPENTIN 100 MG CAPSULE PO SCH (06:32)
[2016-11-02] MEDS: TAMSULOSIN 0.4 MG CAPSULE PO SCH (08:18)
[2016-11-02] MEDS: INSULIN ASPART 300 UNIT/3 ML PEN SUBQ SCH ×2 (08:18→13:55)
[2016-11-02 09:09] LABS: HGB - HEMOGLOBIN 10.5 g/dL (14.0-18.0); MEAN CORPUSCULAR HEMOGLOBIN 29.9 pg (27.0-31.0); MEAN CORPUSCULAR HGB CONC 34.8 g/dL (32.0-36.0); MEAN PLATELET VOLUME 8.7 fL (7.4-11.4); RED BLOOD COUNT 3.49 10^6/uL (4.70-6.10); WHITE BLOOD COUNT 4.9 x10^3/uL (4.8-10.8)
[2016-11-02 12:28] VITALS: BP 137/92
--- NOTE | 2016-11-02 13:14 | Discharge Plan ---
Discharge Plan Disposition: 01 Home, Self Care Condition: Stable Prescriptions: Docusate Sodium 250Mg Capsule [Colace 250Mg Capsule] 250 mg PO DAILY #30 capsule Diet: Diabetic (diabetic diet with low cholesterol and 2 gm sodium) Activity Restrictions: Activity as Tolerated Shower Restrictions: No Driving Restrictions: No Weight Bearing: Full Weight Instruction Topics: Bleeding Gastrointestinal Additional Instructions or Follow Up instructions: Ambulate 3 times daily. Keep hydrated. add fiber to your diet. Use stool softener as directed. IF bleeding returns call 911 to return to the ER No Smoking: If you smoke, Please STOP! Call for help. Follow-up with: Soheila Talbert MD [Primary Care Provider] - Suhas Morton MD [Provider Admit Priv/Credential] - 1 Week
--- NOTE | 2016-11-02 13:24 | PROVIDER PROGRESS NOTE ---
Assessment/Plan - Problem List (1) Lower GI hemorrhage Assessment/Plan: resolved. patient has had no bleeding at this time (2) Hypomagnesemia Assessment/Plan: resolved. magnesium levels within normal limits (3) Diabetes mellitus due to underlying condition with diabetic polyneuropathy Qualifiers: Diabetes mellitus clinical administrative coordinator insulin use: without clinical administrative coordinator use Qualified Code(s): E08.42 - Diabetes mellitus due to underlying condition with diabetic polyneuropathy Assessment/Plan: stable. patient was counseled on the importance of diet and contiuing to monitor his blood glucose. continue with home medications for blood sugar control (4) Obesity due to excess calories with serious comorbidity Assessment/Plan: improved. patient has lost 20 pounds over the last couple months. continue to encourage diet control and weight loss (5) Arteriosclerosis of arterial coronary artery bypass graft Assessment/Plan: stable continuiin amanda plavix and aspirin home medications. (6) BPH (benign prostatic hypertrophy) Qualifiers: Prostatic enlargement morphology: unspecified morphology Lower urinary tract symptom presence: presence of symptoms unspecified Qualified Code(s): N40.0 - Benign prostatic hyperplasia without lower urinary tract symptoms Assessment/Plan: Stable. continue on flomax home dosage - Current Meds Current Meds: Current Medications Generic Name Dose Route Start Last Admin Trade Name Freq PRN Reason Stop Dose Admin Atorvastatin Calcium 20 mg 10/31/16 21:00 11/01/16 20:56 Lipitor PO 20 mg QPM SHY Administration Gabapentin 100 mg 10/31/16 22:00 11/02/16 06:32 Neurontin PO 100 mg TID SHY Administration Insulin Aspart 1 - 5 unit 11/01/16 12:00 11/02/16 08:18 Novolog SUBQ 1 unit 0800,1200,1700,2100 SHY Administration Protocol Pantoprazole Sodium 40 mg 11/01/16 18:00 11/02/16 06:32 Protonix PO 40 mg QDAC SHY Administration Sodium Chloride 10 ml 10/31/16 22:00 11/02/16 06:31 Normal Saline Flush 0.9% IVP 10 ml Q8HR SHY Administration Tamsulosin HCl 0.4 mg 11/01/16 09:00 11/02/16 08:18 Flomax PO 0.4 mg DAILY SHY Administration - Lab Result Lab results reviewed: Yes Fish Bone Diagrams: 11/02/16 09:03 11/01/16 04:35 - Additional Planning Condition/Complexity: Improved Plan Discussed with:: Patient, Spouse Time Spent: 31-60 minutes Additional Planning Notes: Patient is safe to be discharged home with family if surgery is in agreement. Thanks for the referral and we will sign off on patient at this time. Subjective - Subjective Patient Reports: Feeling Better, Resting Comfortably, No Complaints Nursing Reports: No Complaints, Other (ready to be discharged home) Objective Vital Signs: Vital Signs - 24 hr 11/01/16 11/01/16 11/02/16 16:11 20:30 00:53 Temperature 36.9 C 36.7 C 36.6 C Heart Rate [ 86 90 74 Brachial] Respiratory 18 18 16 Rate Blood Pressure 111/69 133/77 H 112/63 [Left Brachial artery] O2 Saturation 97 98 97 11/02/16 11/02/16 07:23 12:27 Temperature 36.5 C 36.5 C Heart Rate [ 78 84 Brachial] Respiratory 16 20 Rate Blood Pressure 144/80 H 137/92 H [Left Brachial artery] O2 Saturation 99 99 Oxygen O2 Source Room air I&O (Last 24 Hrs): Intake and Output Totals x24h 10/31/16 11/01/16 11/02/16 23:59 23:59 23:59 Intake Total 1489 780 Output Total 400 Balance 1089 780 General: Alert, Oriented x3, Cooperative HEENT: PERRLA Neck: Supple, No JVD Lymphatic: no adenopathy Neuro: Alert, CN 2-12 Grossly Intact, Oriented Times 3 Cardiovascular: Regular rate, Normal S1, Normal S2, No murmurs Respiratory: Chest non-tender, No respiratory distress, Breath sounds nml Abdomen: Normal bowel sounds, Soft, No tenderness, No masses Genitourinary: No Discharge Extremities: No clubbing, No cyanosis, No edema Skin: No rashes, No breakdown, No significant lesion - Results Results: Laboratory Results WBC 4.9 x10^3/uL (4.8-10.8) 11/02/16 09:03 RBC 3.49 10^6/uL (4.70-6.10) L 11/02/16 09:03 Hgb 10.5 g/dL (14.0-18.0) L 11/02/16 09:03 Hct 30.0 % (42.0-52.0) L 11/02/16 09:03 MCV 86.0 fL (80.0-94.0) 11/02/16 09:03 MCH 29.9 pg (27.0-31.0) 11/02/16 09:03 MCHC 34.8 g/dL (32.0-36.0) 11/02/16 09:03 RDW 13.0 % (12.0-15.0) 11/02/16 09:03 Plt Count 194 10^3/uL (130-450) 11/02/16 09:03 MPV 8.7 fL (7.4-11.4) 11/02/16 09:03 Neut # 3.3 10^3/uL (1.5-6.6) 11/01/16 10:36 Lymph # 1.6 10^3/uL (1.5-3.5) 11/01/16 10:36 [place] # 0.4 10^3/uL (0.0-1.0) 11/01/16 10:36 Eos # 0.0 10^3/uL (0.0-0.7) 11/01/16 10:36 Baso # 0.0 10^3/uL (0.0-0.1) 11/01/16 10:36 Absolute Nucleated RBC 0.00 x10^3/uL 11/01/16 10:36 Nucleated RBCs 0.0 /100WBC 11/01/16 10:36 ESR 14 mm/Hr (0-20) 11/01/16 08:20 PT 11.6 secs (9.9-12.6) 10/31/16 13:10 INR 1.0 (0.8-1.2) 10/31/16 13:10 Sodium 136 mmol/L (135-145) 11/01/16 04:35 Potassium 3.8 mmol/L (3.5-5.0) 11/01/16 04:35 Chloride 103 mmol/L (101-111) 11/01/16 04:35 Carbon Dioxide 26 mmol/L (21-32) 11/01/16 04:35 Anion Gap 7.0 (6-13) 11/01/16 04:35 BUN 19 mg/dL (6-20) 11/01/16 04:35 Creatinine 0.9 mg/dL (0.6-1.2) 11/01/16 04:35 Estimated GFR (MDRD) 83 (>89) L 11/01/16 04:35 Glucose 154 mg/dL (70-100) H 11/01/16 04:35 POC Whole Bld Glucose 187 mg/dL (70 - 100) H 11/02/16 11:03 Glycated Hemoglobin 6.5 % (4.6-6.2) H 11/01/16 08:20 Estim Average Glucose 140 (70-100) H 11/01/16 08:20 Calcium 8.7 mg/dL (8.5-10.3) 11/01/16 04:35 Phosphorus 2.8 mg/dL (2.5-4.6) 11/01/16 08:20 Magnesium 1.5 mg/dL (1.7-2.8) L 11/01/16 08:20 Total Bilirubin 0.9 mg/dL (0.2-1.0) 11/01/16 04:35 AST 13 IU/L (10-42) 11/01/16 04:35 ALT 18 IU/L (10-60) 11/01/16 04:35 Alkaline Phosphatase 64 IU/L (42-121) 11/01/16 04:35 Troponin I < 0.04 ng/mL (<0.49) 11/01/16 10:36 C-Reactive Protein < 1.0 mg/dL (0-1.0) 11/01/16 08:20 Total Protein 5.7 g/dL (6.7-8.2) L 11/01/16 04:35 Albumin 3.2 g/dL (3.2-5.5) 11/01/16 04:35 Globulin 2.5 g/dL (2.1-4.2) 11/01/16 04:35 Albumin/Globulin Ratio 1.3 (1.0-2.2) 11/01/16 04:35 Blood Type O POSITIVE 10/31/16 13:10 Blood Type Recheck O POSITIVE 10/31/16 13:10 Antibody Screen NEGATIVE 10/31/16 13:10 Crossmatch IS Only See Detail 10/31/16 13:10 - Procedures Procedures: Procedures EXCISION OF ASCENDING COLON, ENDO (10/23/16) EXCISION OF SIGMOID COLON, ENDO (10/23/16) EXCISION OF TRANSVERSE COLON, ENDO (10/23/16)
--- NOTE | 2016-11-02 13:50 | PROVIDER PROGRESS NOTE ---
Assessment/Plan - Problem List (1) Lower GI hemorrhage Assessment/Plan: 71 yo male with lower GI bleed resoved. Pt H&H stable. no more episodes of gross blood. Stable for discharge home. Instructed to follow up in surgery clinic in 1 week To continue all home meds except for ASA which he can start in 1 week. Colace as needed. Stay hydrated and add fiber to his diet. - Current Meds Current Meds: Current Medications Generic Name Dose Route Start Last Admin Trade Name Zenobia PRN Reason Stop Dose Admin Atorvastatin Calcium 20 mg 10/31/16 21:00 11/01/16 20:56 Lipitor PO 20 mg QPM SHY Administration Gabapentin 100 mg 10/31/16 22:00 11/02/16 06:32 Neurontin PO 100 mg TID SHY Administration Insulin Aspart 1 - 5 unit 11/01/16 12:00 11/02/16 08:18 Novolog SUBQ 1 unit 0800,1200,1700,2100 SHY Administration Protocol Pantoprazole Sodium 40 mg 11/01/16 18:00 11/02/16 06:32 Protonix PO 40 mg QDAC SHY Administration Sodium Chloride 10 ml 10/31/16 22:00 11/02/16 06:31 Normal Saline Flush 0.9% IVP 10 ml Q8HR SHY Administration Tamsulosin HCl 0.4 mg 11/01/16 09:00 11/02/16 08:18 Flomax PO 0.4 mg DAILY SHY Administration - Lab Result Fish Bone Diagrams: 11/02/16 09:03 11/01/16 04:35 - Additional Planning My Orders: My Active Orders 11/01/16 18:00 Pantoprazole [Protonix] 40 mg PO QDAC 11/02/16 13:19 Discharge [] .ONCE Subjective - Subjective Patient Reports: Feeling Better Nursing Reports: No Complaints Objective Vital Signs: Vital Signs - 24 hr 11/01/16 11/01/16 11/02/16 16:11 20:30 00:53 Temperature 36.9 C 36.7 C 36.6 C Heart Rate [ 86 90 74 Brachial] Respiratory 18 18 16 Rate Blood Pressure 111/69 133/77 H 112/63 [Left Brachial artery] O2 Saturation 97 98 97 11/02/16 11/02/16 07:23 12:27 Temperature 36.5 C 36.5 C Heart Rate [ 78 84 Brachial] Respiratory 16 20 Rate Blood Pressure 144/80 H 137/92 H [Left Brachial artery] O2 Saturation 99 99 Oxygen O2 Source Room air I&O (Last 24 Hrs): Intake and Output Totals x24h 10/31/16 11/01/16 11/02/16 23:59 23:59 23:59 Intake Total 1489 780 Output Total 400 Balance 1089 780 General: Alert, Oriented x3 HEENT: EOMI Neck: Supple Neuro: Alert Cardiovascular: Regular rate Respiratory: Breath sounds nml Abdomen: Normal bowel sounds, Soft, No tenderness - Results Results: Laboratory Results WBC 4.9 x10^3/uL (4.8-10.8) 11/02/16 09:03 RBC 3.49 10^6/uL (4.70-6.10) L 11/02/16 09:03 Hgb 10.5 g/dL (14.0-18.0) L 11/02/16 09:03 Hct 30.0 % (42.0-52.0) L 11/02/16 09:03 MCV 86.0 fL (80.0-94.0) 11/02/16 09:03 MCH 29.9 pg (27.0-31.0) 11/02/16 09:03 MCHC 34.8 g/dL (32.0-36.0) 11/02/16 09:03 RDW 13.0 % (12.0-15.0) 11/02/16 09:03 Plt Count 194 10^3/uL (130-450) 11/02/16 09:03 MPV 8.7 fL (7.4-11.4) 11/02/16 09:03 Neut # 3.3 10^3/uL (1.5-6.6) 11/01/16 10:36 Lymph # 1.6 10^3/uL (1.5-3.5) 11/01/16 10:36 [place] # 0.4 10^3/uL (0.0-1.0) 11/01/16 10:36 Eos # 0.0 10^3/uL (0.0-0.7) 11/01/16 10:36 Baso # 0.0 10^3/uL (0.0-0.1) 11/01/16 10:36 Absolute Nucleated RBC 0.00 x10^3/uL 11/01/16 10:36 Nucleated RBCs 0.0 /100WBC 11/01/16 10:36 ESR 14 mm/Hr (0-20) 11/01/16 08:20 PT 11.6 secs (9.9-12.6) 10/31/16 13:10 INR 1.0 (0.8-1.2) 10/31/16 13:10 Sodium 136 mmol/L (135-145) 11/01/16 04:35 Potassium 3.8 mmol/L (3.5-5.0) 11/01/16 04:35 Chloride 103 mmol/L (101-111) 11/01/16 04:35 Carbon Dioxide 26 mmol/L (21-32) 11/01/16 04:35 Anion Gap 7.0 (6-13) 11/01/16 04:35 BUN 19 mg/dL (6-20) 11/01/16 04:35 Creatinine 0.9 mg/dL (0.6-1.2) 11/01/16 04:35 Estimated GFR (MDRD) 83 (>89) L 11/01/16 04:35 Glucose 154 mg/dL (70-100) H 11/01/16 04:35 POC Whole Bld Glucose 187 mg/dL (70 - 100) H 11/02/16 11:03 Glycated Hemoglobin 6.5 % (4.6-6.2) H 11/01/16 08:20 Estim Average Glucose 140 (70-100) H 11/01/16 08:20 Calcium 8.7 mg/dL (8.5-10.3) 11/01/16 04:35 Phosphorus 2.8 mg/dL (2.5-4.6) 11/01/16 08:20 Magnesium 1.5 mg/dL (1.7-2.8) L 11/01/16 08:20 Total Bilirubin 0.9 mg/dL (0.2-1.0) 11/01/16 04:35 AST 13 IU/L (10-42) 11/01/16 04:35 ALT 18 IU/L (10-60) 11/01/16 04:35 Alkaline Phosphatase 64 IU/L (42-121) 11/01/16 04:35 Troponin I < 0.04 ng/mL (<0.49) 11/01/16 10:36 C-Reactive Protein < 1.0 mg/dL (0-1.0) 11/01/16 08:20 Total Protein 5.7 g/dL (6.7-8.2) L 11/01/16 04:35 Albumin 3.2 g/dL (3.2-5.5) 11/01/16 04:35 Globulin 2.5 g/dL (2.1-4.2) 11/01/16 04:35 Albumin/Globulin Ratio 1.3 (1.0-2.2) 11/01/16 04:35 Blood Type O POSITIVE 10/31/16 13:10 Blood Type Recheck O POSITIVE 10/31/16 13:10 Antibody Screen NEGATIVE 10/31/16 13:10 Crossmatch IS Only See Detail 10/31/16 13:10 - Procedures Procedures: Procedures EXCISION OF ASCENDING COLON, ENDO (10/23/16) EXCISION OF SIGMOID COLON, ENDO (10/23/16) EXCISION OF TRANSVERSE COLON, ENDO (10/23/16)
--- NOTE | 2016-11-03 08:26 | DISCHARGE SUMMARY ---
DATE OF ADMISSION: 11/01/2016 DATE OF DISCHARGE: 11/02/2016 CONDITION ON DISCHARGE: Improved. FINAL DIAGNOSIS: Lower gastrointestinal bleed. PROCEDURES: None. HISTORY OF PRESENT ILLNESS: This is a 71-year-old male with a recent history of colonoscopy on 10/23/2016 with polyp biopsies with a history of internal hemorrhoids and diverticulosis, who presented to the emergency department with 1 day history of bright red blood per rectum with multiple episodes earlier today. As per the emergency room attending, the patient had orthostatic hypotension when he was examined. The patient denied any shortness of breath. No nausea, vomiting or dizziness or lightheaded currently. He has a past medical history positive for hypertension, high cholesterol, history of myocardial infarction, status post coronary stents and CABG. He also has a history of peripheral neuropathy, type 2 diabetes, diverticulosis, BPH, chronic vision loss and chronic hearing loss, as well as osteoarthritis and chronic back pain. LABORATORY DATA: His hemoglobin was 12.8 on admission and his hematocrit was 36.4. On discharge, his H and H were 10.1/30.4, which was stable after serial H and H's. His magnesium was found to be 1.5 while in the hospital. HOSPITAL COURSE: The patient was admitted for monitoring and serial hemoglobin and hematocrits were measured every 6 hours. He was placed on lactated Ringer's as well as his home medications consisting of Lipitor, Neurontin, Protonix, Flomax and a regular insulin sliding scale was used for the diabetes. A medical consult was called and an EKG showed a normal sinus rhythm and troponins were within normal limits. C-reactive protein was also normal. The patient had 1 bright red bloody bowel movement during his hospital stay and subsequent bowel movements there was no more bright red blood. There was some blood in the stool , but no loose bright red blood. The patient tolerated his diet, was ambulating well and after serial H and H's remained stable with his hematocrit above 30 he was discharged home in good condition. DISCHARGE MEDICATIONS: He was sent home on his home medications and told to resume his metformin 500 mg orally twice a day with meals, to continue his omeprazole 20 mg orally daily, to continue his lisinopril 20 mg orally daily. Continue with gabapentin 300 mg orally daily, to continue his Lipitor 20 mg orally daily. He was instructed to hold his Niacin and his aspirin 81 mg until seen in the office and he was started on Colace 250 mg 1 tab orally daily. He was instructed on no restrictions on his activity. No shower restrictions, no driving restrictions, full weightbearing status. He was instructed to ambulate 3 times daily, to keep hydrated and to add fiber to his diet and use stool softeners as directed. He was also instructed that if bleeding returned to call 911 and to return to the ER. He has followups with his primary care provider, Dr. Soheila Talbert, as well as to followup with Dr. Morton in 1 week. CODE STATUS: FULL CODE. JOB #: [id number] EXT JOB #:[id number] MTDD
== END 2016-11-02 13:55 | disposition home or self-care (01) | DRG 921 ==
LOC: ED 12:35 → UNDOADMOB 17:44 → MS 17:44 → OBSVTOIN 11-01 15:13 → INTOOBSV 11-01 15:13 → MS 11-01 18:41 → UNDODISIN 11-02 13:55
PROVIDERS: ADMIT Surgery; ATTEND Surgery
DX: K92.2 Gastrointestinal hemorrhage, unspecified (principal); K91.840 Postprocedural hemorrhage of a digestive system organ or structure following a digestive system procedure; Y83.8 Other surgical procedures as the cause of abnormal reaction of the patient, or of later complication, without mention of misadventure at the time of the procedure; Y92.234 Operating room of hospital as the place of occurrence of the external cause; E83.42 Hypomagnesemia; K57.30 Diverticulosis of large intestine without perforation or abscess without bleeding; Z68.35 Body mass index [BMI] 35.0-35.9, adult; E66.01 Morbid (severe) obesity due to excess calories; I10 Essential (primary) hypertension; K64.8 Other hemorrhoids; Z86.010 Personal history of colon polyps; E78.00 Pure hypercholesterolemia, unspecified; E11.42 Type 2 diabetes mellitus with diabetic polyneuropathy; N40.0 Benign prostatic hyperplasia without lower urinary tract symptoms; H54.7 Unspecified visual loss; H91.90 Unspecified hearing loss, unspecified ear; M19.90 Unspecified osteoarthritis, unspecified site; M54.9 Dorsalgia, unspecified; G89.29 Other chronic pain; Z79.82 Long term (current) use of aspirin; Z79.899 Other long term (current) drug therapy; Z95.5 Presence of coronary angioplasty implant and graft; I25.2 Old myocardial infarction; Z95.1 Presence of aortocoronary bypass graft
CPT/HCPCS: 36415; 80048; 80053; 83036; 83735; 84100; 84484; 85014; 85018; 85025; 85610; 85651; 86140; 86850; 86900; 86901; 86920; 93005; 96361; 96365; 96366; 99284; 99285

== ENCOUNTER 2016-12-25 09:31 | Outpatient (CLI) | payer MEDICARE, OTHER ==
[2016-12-25 19:05] LABS: BASOPHILS % (AUTO) 0.7 %; EOSINOPHILS # (AUTO) 0.1 10^3/uL (0.0-0.7); EOSINOPHILS % (AUTO) 1.2 %; HCT - HEMATOCRIT 37.7 % (42.0-52.0); HGB - HEMOGLOBIN 12.3 g/dL (14.0-18.0); LYMPHOCYTES # (AUTO) 1.5 10^3/uL (1.5-3.5); LYMPHOCYTES % (AUTO) 32.5 %; MEAN CORPUSCULAR HEMOGLOBIN 29.1 pg (27.0-31.0); MEAN CORPUSCULAR HGB CONC 32.7 g/dL (32.0-36.0); MEAN CORPUSCULAR VOLUME 89.2 fL (80.0-94.0); MEAN PLATELET VOLUME 9.5 fL (7.4-11.4); MONOCYTES # (AUTO) 0.3 10^3/uL (0.0-1.0); MONOCYTES % (AUTO) 6.7 %; NEUTROPHILS # (AUTO) 2.7 10^3/uL (1.5-6.6); NEUTROPHILS % (AUTO) 58.9 %; RED BLOOD COUNT 4.23 10^6/uL (4.70-6.10); UNCORRECTED WHITE BLOOD COUNT 4.7 x10^3/uL; WHITE BLOOD COUNT 4.7 x10^3/uL (4.8-10.8)
== END 2016-12-25 09:32 | disposition home or self-care (01) ==
LOC: LAB.F 09:31
PROVIDERS: ATTEND Internal Medicine
DX: K92.2 Gastrointestinal hemorrhage, unspecified (principal); D64.9 Anemia, unspecified
CPT/HCPCS: 36415; 85025

== ENCOUNTER 2017-10-29 10:50 | Outpatient (CLI) | payer MEDICARE, OTHER | END 2017-10-29 10:51 | disposition home or self-care (01) | LOC: LAB.F 10:50 | PROVIDERS: ATTEND Urology | DX: N40.1 Benign prostatic hyperplasia with lower urinary tract symptoms (principal) | CPT/HCPCS: 36415; 84153 ==

== ENCOUNTER 2017-11-13 08:00 | Outpatient (CLI) | payer MEDICARE, OTHER | END 2017-11-13 08:01 | disposition home or self-care (01) | LOC: LAB.R 08:00 | PROVIDERS: ATTEND Podiatrist | DX: L03.032 Cellulitis of left toe (principal) | CPT/HCPCS: 87070; 87205 ==

== ENCOUNTER 2017-12-17 15:15 | Outpatient (CLI) | payer MEDICARE, OTHER | END 2017-12-17 15:16 | disposition home or self-care (01) | LOC: LAB.R 15:15 | PROVIDERS: ATTEND Podiatrist | DX: L03.031 Cellulitis of right toe (principal) | CPT/HCPCS: 87070; 87181; 87205 ==

== ENCOUNTER 2018-02-05 21:52 | Outpatient (CLI) | payer MEDICARE, OTHER ==
--- NOTE | 2018-02-05 23:45 | Ultrasound Report ---
Reason: R LE SWELLING Procedure Date: 02/05/2018 Accession Number: [id number] / [id number] Procedure: US - Duplex Ext Veins Right CPT Code: FULL RESULT: EXAM: RIGHT LOWER EXTREMITY VENOUS ULTRASOUND EXAM DATE: 02/05/2018 11:06 PM. CLINICAL HISTORY: Right lower extremity swelling. COMPARISON: None. TECHNIQUE: Real-time sonographic vascular imaging was performed by the tinsmith helper through the lower extremity utilizing both color-flow and Doppler spectral analysis. Multiple paper sales representative static images were saved for review. FINDINGS: Common Femoral Vein (CFV): Normal. CFV-GSV Junction: Normal. Profunda Femoral Vein (PFV): Normal. Femoral Vein (FV) Prox: Normal. Femoral Vein (FV) Mid: Normal. Femoral Vein (FV) Dist: Normal. Popliteal Vein: Normal. Posterior Tibial Veins: Normal. Peroneal Veins: Normal. Other: None. IMPRESSION: No evidence for deep venous thrombosis. RADIA
== END 2018-02-05 21:53 | disposition home or self-care (01) ==
LOC: DI 21:52
PROVIDERS: ATTEND Internal Medicine
DX: R22.41 Localized swelling, mass and lump, right lower limb (principal)

== ENCOUNTER 2019-03-24 10:23 | Outpatient (CLI) | payer MEDICARE, OTHER ==
[~2019-03-24 10:23] MED LIST: REGADENOSON 0.4 MG/5 ML SYRINGE IVP ONE
[2019-03-24] MEDS ORDERED: REGADENOSON 0.4 MG/5 ML SYRINGE IVP ONE ×2 (11:41→14:18)
--- NOTE | 2019-03-24 16:02 | Nuclear Medicine Report ---
Reason: FATIGUE Procedure Date: 03/24/2019 Accession Number: [id number] / [id number] Procedure: NM - Myocardial Perfusion STR/RST CPT Code: FULL RESULT: EXAM: SINGLE-ISOTOPE PHARMACOLOGICAL STRESS TEST WITH REGADENOSON. SINGLE-ISOTOPE AND TWO-DAY REST/STRESS MYOCARDIAL PERFUSION SCANS WITH TOMOGRAPHIC IMAGING, QUANTITATIVE ANALYSIS, WALL MOTION ANALYSIS AND CALCULATION OF EJECTION FRACTION. EXAM DATE: 03/24/2019 02:31 PM. CLINICAL HISTORY: Fatigue. COMPARISON: None available. TECHNIQUE: A pharmacological stress was performed with the infusion of 0.4 mg regadenoson per protocol. According to protocol, 9.9 mCi of Tc-99m sestamibi was injected for stress myocardial perfusion scan. Motion correction was applied when appropriate. The following day after the intravenous administration of 43.6 mCi of Tc-99m sestamibi, a rest myocardial perfusion scan was done with tomography. Motion correction was applied when appropriate. Gated tomographic images were obtained for wall motion analysis and computation of left ventricular ejection fraction. FINDINGS: No fixed or reversible perfusion defects are evident. Summed stress score 0 Summed rest score 0 Summed difference score 0 Wall motion analysis demonstrates no focal wall motion abnormality. The left ventricular end-diastolic volume is 74 cc. The left ventricular end-systolic volume is 19 cc. The left ventricular ejection fraction is calculated to be 74%. IMPRESSION: 1. No scintigraphic findings to indicate myocardial ischemia. Negative for infarct. 2. Left ventricular ejection fraction of 74%. 3. Normal segmental and global wall motion. 4. Normal left ventricular cavity size, no change with stress. Please correlate findings with stress ECG tracings and procedure notes. RADIA
--- NOTE | 2019-03-24 19:58 | CARDIAC PROCEDURE NOTE ---
DATE OF SERVICE: 03/24/2019 Physician: Soheila Talbert MD PROCEDURE: Lexiscan. HEART RATE RESPONSE: Resting of 65 to maximum _of 79____ . BLOOD PRESSURE RESPONSE: 138/68 to max of 140/60. SYMPTOMS: He did report some chest heaviness which resolved by the end of the test. ST SEGMENT RESPONSE: No significant ST segment elevations or depressions. ARRHYTHMIAS: None detected. IMPRESSION: Some symptoms of chest heaviness, but no significant EKG changes. CONCLUSION: Await imaging results. TD: 03/24/2019 19:47 MTDD
== END 2019-03-24 10:24 | disposition home or self-care (01) ==
LOC: DI 10:23
PROVIDERS: ATTEND Internal Medicine
DX: R53.83 Other fatigue (principal); R07.89 Other chest pain
CPT/HCPCS: 78452; 93017; A9500; J2785

== ENCOUNTER 2021-03-02 06:18 | Day surgery (SDC) | payer MEDICARE, OTHER ==
[2021-03-02] MEDS ORDERED: LACTATED RINGERS 1,000 ML IV ONE ×2 (06:52→07:45)
--- NOTE | 2021-03-02 07:11 | ANESTHESIA ---
Pre-Anesthesia VS, & Labs - Diagnosis Screening exam - Procedure colonoscopy Vital Signs: Temp Pulse Resp BP Pulse Ox 36.6 C 74 16 153/75 H 99 03/02/21 06:30 03/02/21 06:30 03/02/21 06:30 03/02/21 06:30 03/02/21 06:30 Height: 5 ft 11 in Weight (kg): 105.8 kg Body Mass Index: 32.5 BMI Classification: Obese - NPO >8 hours - Lab Results Current Lab Results: Laboratory Tests 03/02/21 06:49: POC Whole Bld Glucose 121 H Home Medications and Allergies Atorvastatin [Lipitor] 20 mg PO QPM 10/23/16 Gabapentin 300 mg PO QPM 10/23/16 Lisinopril 20 mg PO DAILY 10/23/16 Niacin [Niacor] 500 mg PO BID 10/23/16 Omeprazole 20 mg PO DAILY 10/23/16 Metformin HCl [Metformin ER Osmotic] 500 mg PO TIDWM 10/31/16 Allergies/Adverse Reactions: Allergies Allergy/AdvReac Type Severity Reaction Status Date / Time No Known Drug Allergies Allergy Verified 10/23/16 11:33 Anes History & Medical History - Anesthetic History Anesthesia Complications: reports: No previous complications - Medical History Cardiovascular: reports: Hypertension, High cholesterol, Coronary artery disease, [place] Pulmonary: reports: None Gastrointestinal: reports: Diverticulitis Urinary: reports: Benign prostate hypertrophy, Other Musculoskeletal: reports: Osteoarthritis, Chronic back pain Endocrine/Autoimmune: reports: Type 2 diabetes Blood Disorders: reports: None Skin: reports: None Smoking Status: Never smoker Psychosocial: reports: No issues indicated - Surgical History General: reports: Colonoscopy Eyes Ears Nose Throat (EENT): reports: Cataracts Cardiothoracic: reports: CABG, Coronary stent Orthopedic: reports: Other Exam General: Alert, Oriented x3, Cooperative, No acute distress Dental: WNL Mouth Openin Fingerbreadth Neck Mobility: Normal Mallampati classification: II Mental/Cognitive Status: Alert/Oriented X3, Normal for patient Plan Anesthesia Type: Total IV Consent for Procedure(s) Verified and Reviewed: Yes Code Status: Attempt Resuscitation ASA classification: 3-Severe systemic disease Is this case an emergency?: No
[2021-03-02] MEDS ORDERED: fentaNYL 100 MCG/2 ML VIAL ONE (07:18)
[2021-03-02] MEDS ORDERED: MIDAZOLAM 2 MG/2 ML VIAL ONE (07:18)
[2021-03-02] MEDS ORDERED: PROPOFOL 200 MG/20 ML VIAL IVP ONE (07:18)
[2021-03-02 08:30] VITALS: BP 116/73
--- NOTE | 2021-03-02 08:41 | ANESTHESIA POST OP EVALUATION ---
Anesthesia Post Eval - Post Anesthesia Eval Vitals: Last Vital Signs Temp 36.6 C 03/02/21 08:30 Pulse 68 03/02/21 08:30 Resp 16 03/02/21 08:30 BP 116/73 03/02/21 08:30 Pulse Ox 99 03/02/21 08:30 CV Function Including HR & BP: Stable Pain Control: Satisfactory Nausea & Vomiting: Negative Mental Status: Baseline Respiratory Status: Airway Patent Hydration Status: Satisfactory Anesthesia Complications: None
== END 2021-03-02 06:19 | disposition home or self-care (01) ==
LOC: SDS 06:18
PROVIDERS: ATTEND Surgery
PROC: 0DBN8ZZ Excision of Sigmoid Colon, Via Natural or Artificial Opening Endoscopic (ICD-10-PCS; 2021-03-02)
PROC: 0DBP8ZZ Excision of Rectum, Via Natural or Artificial Opening Endoscopic (ICD-10-PCS; principal; 2021-03-02 07:30)
DX: Z12.11 Encounter for screening for malignant neoplasm of colon (principal); D12.8 Benign neoplasm of rectum; K63.5 Polyp of colon; K64.8 Other hemorrhoids; K57.30 Diverticulosis of large intestine without perforation or abscess without bleeding; E66.9 Obesity, unspecified; Z68.32 Body mass index [BMI] 32.0-32.9, adult; I25.10 Atherosclerotic heart disease of native coronary artery without angina pectoris; I25.2 Old myocardial infarction; N40.0 Benign prostatic hyperplasia without lower urinary tract symptoms; I10 Essential (primary) hypertension
CPT/HCPCS: 45380; J7120

== ENCOUNTER 2021-09-09 08:00 | Outpatient (CLI) | payer MEDICARE, OTHER | END 2021-09-09 08:01 | disposition home or self-care (01) | LOC: LAB.S 08:00 | PROVIDERS: ATTEND Physician Assistant Medical | DX: L03.116 Cellulitis of left lower limb (principal) | CPT/HCPCS: 87070; 87077; 87205 ==

== ENCOUNTER 2021-09-26 08:00 | Outpatient (CLI) | payer MEDICARE, OTHER | END 2021-09-26 08:01 | disposition home or self-care (01) | LOC: LAB.R 08:00 | PROVIDERS: ATTEND Podiatrist | DX: E11.622 Type 2 diabetes mellitus with other skin ulcer (principal) | CPT/HCPCS: 87070; 87181; 87205 ==

== ENCOUNTER 2021-09-28 14:44 | Outpatient (CLI) | payer MEDICARE, OTHER ==
--- NOTE | 2021-09-28 16:09 | XRAY Report ---
PROCEDURE: Foot 3 View LT INDICATIONS: DIABETIC FOOT ULCER TECHNIQUE: 3 views of the foot were acquired. COMPARISON: None. FINDINGS: Bones: No fractures or dislocations. No suspicious bony lesions. There is a bipartite medial sesam oid. There is degenerative joint disease. Soft tissues: No tibiotalar joint effusion. Achilles tendon appears normal. IMPRESSION: 1. No suspicious osseous lesions to suggest osteomyelitis. Early osteomyelitis may not have radiograp hic findings. If clinical suspicion is high, MRI or triple phase bone scan is recommended. 2. Degenerative joint disease. Reviewed by: Duc Mejia MD on 09/28/2021 4:07 PM PDT Approved by: Duc Mejia MD on 09/28/2021 4:07 PM PDT Station ID: [id number]
== END 2021-09-28 14:45 | disposition home or self-care (01) ==
LOC: DI 14:44
PROVIDERS: ATTEND Podiatrist
DX: E11.622 Type 2 diabetes mellitus with other skin ulcer (principal); M19.072 Primary osteoarthritis, left ankle and foot

== ENCOUNTER 2021-12-26 14:54 | Emergency (ER) | payer MEDICARE, OTHER ==
--- NOTE | 2021-12-26 15:55 | ED Physician Documentation ---
PD HPI SKIN - Stated complaint Stated Complaint: RT FOOT PX - Chief complaint Chief Complaint: Wound - History obtained from History obtained from: Patient, Family - History of Present Illness Timing - onset: Yesterday Timing - details: Gradual onset - Additional information Additional information: 76-year-old male with history of diabetes, chronic foot ulcers presents from home at the request of his cloth finisher for evaluation of a diabetic ulcer. Patient states that he will get a callus that eventually becomes a blister and a diabetic infection. Patient incidentally tested positive for COVID-19 yesterday, so his cloth finisher could not see him in the clinic and referred him to the ER for wound culture and initiation of antibiotics. 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 Review of Systems Ten Systems: 10 systems reviewed and negative Constitutional: denies: Fever, Chills, Myalgias, Fatigue, Weight Loss, Sweats, Reviewed and negative, Other Eyes: denies: Loss of vision, Decreased vision, Photophobia, Discharge, Irritation, Reviewed and negative, Other Ears: denies: Loss of hearing, Ear pain, Drainage/discharge, Tinnitus/ringing, Foreign body, Reviewed and negative, Other Nose: denies: Rhinorrhea / runny nose, Congestion, Epistaxis, Sinus pressure / pain, Foreign Body, Reviewed and negative, Other Throat: denies: Dental pain / toothache, Oral lesions / sores, Sore throat, Swollen tonsils, Swallowed foreign body, Reviewed and negative, Other Cardiac: denies: Chest pain / pressure, Palpitations, Pedal edema, Calf pain, Reviewed and negative, Other Respiratory: denies: Dyspnea, Cough, Hemoptysis, Wheezing, Reviewed and negative, Other GI: denies: Abdominal Pain, Abdominal Swelling, Nausea, Vomiting, Constipation, Diarrhea, Hematemesis, Bloody / black stool, Reviewed and negative, Other : denies: Dysuria, Frequency, Hesitancy, Unable to Void, Incontinent, Hematuria, Discharge, LMP, Vaginal bleeding, Irregular menses, Missed period, Now EGA, Control, Hysterectomy, Testicular pain, Testicular mass, Valle Problem, Reviewed and negative, Other Skin: reports: Other (callus, diabetic ulcer) Musculoskeletal: denies: Neck pain, Back pain, Extremity pain, Joint pain, Extremity swelling, Joint swelling, Pain with weight bearing, Reviewed and negative, Other Neurologic: denies: Generalized weakness, Focal weakness, Numbness, Difficulty speaking, Near syncope, Syncope, Seizure, Confused, Altered mental status, Unresponsive, Headache, Head injury, LOC, Reviewed and negative, Other Psychiatric: denies: Depressed, Suicidal, Homicidal, Hallucinations, Delusions, Anxiety, Insomnia, Reviewed and negative, Other PD PAST MEDICAL HISTORY - Past Medical History Cardiovascular: Hypertension, High cholesterol, Coronary artery disease, [place] Respiratory: None Endocrine/Autoimmune: Type 2 diabetes GI: Diverticulitis : Benign prostate hypertrophy, Other HEENT: Chronic vision loss, Chronic hearing loss Psych: None Musculoskeletal: Osteoarthritis, Chronic back pain Derm: None - Past Surgical History General: Colonoscopy Ortho: Other Cardiovascular: CABG, Coronary stent HEENT: Cataracts - Present Medications Home Medications: Ambulatory Orders Medication Instructions Recorded Confirmed Atorvastatin [Lipitor] 20 mg PO QPM 10/23/16 03/02/21 Gabapentin 300 mg PO QPM 10/23/16 03/02/21 Lisinopril 20 mg PO DAILY 10/23/16 03/02/21 Niacin [Niacor] 500 mg PO BID 10/23/16 03/02/21 Omeprazole 20 mg PO DAILY 10/23/16 03/02/21 Metformin HCl [Metformin ER 500 mg PO TIDWM 10/31/16 03/02/21 Osmotic] Aspirin [Aspirin EC] 1 tab ORAL DAILY 03/02/21 03/02/21 Doxycycline Hyclate 100 mg PO BID #14 tab.sr 12/26/21 - Allergies Allergies/Adverse Reactions: Allergies Allergy/AdvReac Type Severity Reaction Status Date / Time No Known Drug Allergies Allergy Verified 12/26/21 15:05 - Social History Does the pt smoke?: No Smoking Status: Never smoker Does the pt drink ETOH?: No Does the pt have substance abuse?: No - Immunizations Immunizations are current?: Yes PD ED PE NORMAL - General General: Alert and oriented X 3, No acute distress, Well developed/nourished, Other - HEENT HEENT: Atraumatic, PERRL, EOMI, Ears normal, Moist mucous membranes, Pharynx benign, Dentition benign, Other - Neck Neck: Supple, no meningeal sign, No bony TTP, No adenopathy, Thyroid normal, No JVD, No bruit, C-Spine cleared by NEXUS criteria, Other - Cardiac Cardiac: RRR, No murmur, No gallop, No rub, Strong equal pulses, Other - Respiratory Respiratory: No respiratory distress, Clear bilaterally, Other - Abdomen Abdomen: Normal bowel sounds, Soft, Non tender, Non distended, No organomegaly, Other - Derm Derm: Normal color, Warm and dry, No rash - Extremities Extremities: No tenderness to palpate, Normal ROM s pain, No edema, No calf tend erness / cord, Other (Callus on ball of L foot) - Neuro Neuro: Alert and oriented X 3, lace weaver 2-12 intact, No motor deficit, No sensory deficit, Normal speech, Other - Psych Psych: Normal mood, Normal affect, Other Results - Vitals Vitals: Vital Signs - 24 hr 12/26/21 12/26/21 15:00 16:11 Temperature 36.1 C L Heart Rate 66 75 Respiratory 16 18 Rate Blood Pressure 167/73 H 143/85 H O2 Saturation 100 98 Oxygen O2 Source Room air - Labs Labs: Microbiology 12/26/21 15:58 Wound Culture - Preliminary Foot - Right Beta Hemolytic Strep Group B PD MEDICAL DECISION MAKING - ED course Complexity details: reviewed old records, re-evaluated patient ED course: Concern for evolution of diabetic ulcer. The patient's cloth finisher Dr. Lamas was contacted, who stated that the patient has all the tools that he needs to manage his ulcers at home, in the past he has been well treated with doxycycline and recommended initiation of doxycycline until cultures could be resulted. She will be able to follow-up the cultures as she is a staff member at this hospital. Patient informed of plan, he is aware that antibiotics have been sent to the pharmacy and he will follow-up in clinic as soon as possible given his covid-19 positive status Departure - Departure Disposition: 01 Home, Self Care Clinical Impression: Abscess Condition: Good Instructions: ED Staph Infec Abx Tx Only Prescriptions: Doxycycline Hyclate 100 mg PO BID #14 tab.sr Discharge Date/Time: 12/26/21 16:13
[2021-12-26 16:13] VITALS: BP 143/85
== END 2021-12-26 16:13 | disposition home or self-care (01) ==
LOC: ED 14:54
DX: E11.69 Type 2 diabetes mellitus with other specified complication (principal); L02.91 Cutaneous abscess, unspecified; U07.1 COVID-19; Z79.84 Long term (current) use of oral hypoglycemic drugs
CPT/HCPCS: 87070; 87205; 99283

== ENCOUNTER 2022-02-28 08:00 | Outpatient (CLI) | payer MEDICARE, OTHER ==
[2022-02-28 16:05] LABS: BASOPHILS % (AUTO) 0.6 %; EOSINOPHILS # (AUTO) 0.1 10^3/uL (0.0-0.7); EOSINOPHILS % (AUTO) 0.9 %; HCT - HEMATOCRIT 42.9 % (42.0-52.0); HGB - HEMOGLOBIN 14.2 g/dL (14.0-18.0); LYMPHOCYTES # (AUTO) 1.7 10^3/uL (1.5-3.5); LYMPHOCYTES % (AUTO) 31.2 %; MEAN CORPUSCULAR HEMOGLOBIN 30.4 pg (27.0-31.0); MEAN CORPUSCULAR HGB CONC 33.1 g/dL (32.0-36.0); MEAN CORPUSCULAR VOLUME 91.9 fL (80.0-94.0); MEAN PLATELET VOLUME 11.9 fL (7.4-11.4); MONOCYTES # (AUTO) 0.4 10^3/uL (0.0-1.0); MONOCYTES % (AUTO) 8.2 %; NEUTROPHILS # (AUTO) 3.2 10^3/uL (1.5-6.6); NEUTROPHILS % (AUTO) 58.9 %; PLT - PLATELET COUNT 194 10^3/uL (130-450); RED BLOOD COUNT 4.67 10^6/uL (4.70-6.10); RED CELL DISTRIBUTION WIDTH 12.4 % (12.0-15.0); WHITE BLOOD COUNT 5.4 x10^3/uL (4.8-10.8)
[2022-02-28 16:13] LABS: MICROALBUM/CREATININE RATIO,UR 12.2 ug/mg (<30.0)
[2022-02-28 16:21] LABS: ALBUMIN 4.2 g/dL (3.2-5.5); ALBUMIN/GLOBULIN RATIO 1.4 (1.0-2.2); ALKALINE PHOSPHATASE 91 IU/L (42-121); ALT ALANINE AMINOTRANSFERASE 16 IU/L (10-60); AST ASPARTATE AMINOTRANSFERASE 15 IU/L (10-42); BILIRUBIN,TOTAL 1.1 mg/dL (0.2-1.0); BUN - BLOOD UREA NITROGEN 17 mg/dL (6-20); CALCIUM 9.8 mg/dL (8.5-10.3); CARBON DIOXIDE - CO2 30 mmol/L (21-32); CHLORIDE 99 mmol/L (101-111); CHOL/HDL RATIO 3.4 (<5.0); CHOLESTEROL 135 mg/dL; CK- CREATINE KINASE 51 IU/L (22-269); CREATININE 0.7 mg/dL (0.6-1.2); GFR - MDRD 109 (>89); GLUCOSE 117 mg/dL (70-100); HDL CHOLESTEROL 40 mg/dL; LDL CHOLESTEROL,CALCULATED 63 mg/dL; LDL/HDL RATIO 1.6 (<3.6); MAGNESIUM 1.5 mg/dL (1.7-2.8); POTASSIUM 3.7 mmol/L (3.5-5.0); SODIUM 137 mmol/L (135-145); TOTAL PROTEIN 7.2 g/dL (6.7-8.2); TRIGLYCERIDES 159 mg/dL; VLDL CHOLESTEROL 32 mg/dL
[2022-02-28 16:23] LABS: PSA TOTAL 0.88 ng/mL (0.000-2.000)
[2022-02-28 16:30] LABS: THYROID STIMULATING HORMONE 1.27 uIU/mL (0.34-5.60)
[2022-02-28 19:18] LABS: ESTIMATED AVERAGE GLUCOSE 120 mg/dL (70-100); HEMOGLOBIN A1c% 5.8 % (4.27-6.07)
== END 2022-02-28 23:59 | disposition home or self-care (01) ==
LOC: LAB.R 08:00
PROVIDERS: ATTEND Internal Medicine
DX: Z00.00 Encounter for general adult medical examination without abnormal findings (principal); D64.9 Anemia, unspecified; N40.0 Benign prostatic hyperplasia without lower urinary tract symptoms; I25.10 Atherosclerotic heart disease of native coronary artery without angina pectoris; F32.A Depression, unspecified; E11.9 Type 2 diabetes mellitus without complications; K21.9 Gastro-esophageal reflux disease without esophagitis; H40.9 Unspecified glaucoma; Z86.010 Personal history of colon polyps; I10 Essential (primary) hypertension; M19.90 Unspecified osteoarthritis, unspecified site; G62.9 Polyneuropathy, unspecified
CPT/HCPCS: 80053; 80061; 82043; 82550; 82570; 82607; 83036; 83721; 83735; 84153; 84443; 85025

== ENCOUNTER 2022-09-27 12:21 | Outpatient (CLI) | payer MEDICARE, OTHER ==
[2022-09-27 13:03] LABS: CREATININE 0.8 mg/dL (0.6-1.2)
[2022-09-27] MEDS ORDERED: iohexoL-300 100 ML VIAL ONE ×2 (13:05)
[2022-09-27] MEDS ORDERED: iohexoL-300 100 ML VIAL IVP ONE (20:34)
--- NOTE | 2022-09-28 08:13 | CT Report ---
PROCEDURE: IVP INDICATIONS: GROSS HEMATURIA CONTRAST: 140ml Omnipaque 300 TECHNIQUE: After the administration of intravenous contrast, 5 mm thick sections acquired from the diaphragms to the symphysis. 5 mm thick coronal and sagittal reformats were acquired. For radiation dose reducti on, the following was used: automated exposure control, adjustment of mA and/or kV according to chloe ent size. COMPARISON: None. FINDINGS: Image quality: Excellent. Urinary system: Both kidneys are normal in size. No hydronephrosis or nephrolithiasis on pre-contras t images. No solid masses or complex cysts which require follow up. The right kidney has a subcentim eter simple cyst in the lower pole. No nephroureteral filling defects. The opacified renal calyces an d ureters appear normal, without filling defect. Bladder wall thickness is normal, accounting for un derdistention. No calcified bladder stones. No filling defect within the opacified bladder. OTHER Lung bases and heart: Unremarkable. Liver: Unremarkable. Gallbladder and biliary tree: Spleen: Unremarkable. Pancreas: Unremarkable. Adrenals: Unremarkable. Bowel and peritoneum: No bowel distension. No pathologic free fluid. Abdominal Lymph nodes: No central or retroperitoneal adenopathy. Vessels: Unremarkable. Reproductive organs: Unremarkable. Pelvic Lymph nodes: Unremarkable. Bones: No aggressive osseous abnormality. Other: None. IMPRESSION: 1. No acute abnormality in the abdomen and pelvis. 2. Diverticulosis with no evidence of diverticulitis. 3. No nephroureteral lithiasis. 4. No solid or cystic kidneys. Reviewed by: Bebeto Ahuja on 09/28/2022 8:11 AM PDT Approved by: Bebeto Ahuja on 09/28/2022 8:11 AM PDT Station ID: [id number]
== END 2022-09-27 12:22 | disposition home or self-care (01) ==
LOC: DI 12:21
PROVIDERS: ATTEND Urology
DX: R31.0 Gross hematuria (principal); K57.30 Diverticulosis of large intestine without perforation or abscess without bleeding
CPT/HCPCS: 36415; 74178; 82565; 84520; Q9967

== ENCOUNTER 2022-12-15 12:25 | Outpatient (CLI) | payer MEDICARE, OTHER ==
--- NOTE | 2022-12-15 13:09 | XRAY Report ---
PROCEDURE: Toe(s) RT INDICATIONS: RIGHT 2ND TOE CELLULITIS/WOUND TECHNIQUE: 3 views of the second toe(s) acquired. COMPARISON: FINDINGS: Bones: No fractures or dislocations. No suspicious bony lesions or erosions. Soft tissues: No suspicious soft tissue densities. None prominent distal second digit soft tissue e chanell. IMPRESSION: Distal second digit soft tissue edema possibly related to cellulitis and/or wound. No underlying osse ous abnormality. Reviewed by: Sheila Tipton MD on 12/15/2022 1:08 PM PDT Approved by: Sheila Tipton MD on 12/15/2022 1:08 PM PDT Station ID: [id number]
== END 2022-12-15 23:59 | disposition home or self-care (01) ==
LOC: DI.S 12:25
PROVIDERS: ATTEND Physician Assistant Medical
DX: L03.031 Cellulitis of right toe (principal); L89.893 Pressure ulcer of other site, stage 3; E11.40 Type 2 diabetes mellitus with diabetic neuropathy, unspecified

== ENCOUNTER 2022-12-29 13:00 | Outpatient (CLI) | payer MEDICARE, OTHER | END 2022-12-29 23:59 | disposition home or self-care (01) | LOC: LAB.S 13:00 | PROVIDERS: ATTEND Physician Assistant Medical | DX: L03.031 Cellulitis of right toe (principal) | CPT/HCPCS: 87070; 87205 ==